=== PATIENT | male | born 1985 | race Caucasian/White ===

== ENCOUNTER 2024-06-27 23:24 | Inpatient (IN) | payer MEDICAID, SELFPAY ==
[2024-06-27 23:29] VITALS: PULSE 115; RESP 20; TEMP 36.3; O2SAT 95
[2024-06-27 23:31] VITALS: BP 160/103
[2024-06-27 23:32] VITALS: BP 160/103; PULSE 121; O2SAT 94
[2024-06-27 23:33] VITALS: PULSE 115; O2SAT 95
[2024-06-27 23:40] VITALS: PULSE 109; O2SAT 93
--- NOTE | 2024-06-27 23:42 | ED.GENADUL_ITS ---
Discharge Plan Disposition Patient Disposition: Admit to [facility] Condition: Improving Discharge Details Chief Complaint: Male Reproductive Problem Clinical Impression: Sepsis, Cellulitis of shaft of penis Primary Care Provider: Unknown,Unknown ED Provider: Deion Carlisle Home Meds and New Rx's Prescriptions: No Action buprenorphine-naloxone 8-2 mg film 1 film sublingual DAILY ibuprofen [Addaprin] 200 mg tablet 600 mg PO TID duloxetine [Cymbalta] 30 mg capsule,delayed release(DR/EC) 30 mg PO DAILY acetaminophen 325 mg capsule 650 mg PO BID PRN calcium polycarbophil [Fiber (calcium polycarbophil)] 625 mg tablet 1,250 mg PO BID docusate sodium 100 mg capsule 100 mg PO DAILY sennosides [Black-Draught Lax-Senna] 8.6 mg tablet 8.6 mg PO DAILY hydroxyzine HCl 50 mg tablet 50 mg PO ONCE testosterone enanthate 100 mg/0.5 mL auto-injector 75 mg subcut QWEEK HPI General Date/Time Provider Initiated Documentation: 06/27/24 23:37 . HPI Narrative: This is a 39-year-old male who is circumcised who denies any significant past medical history who is currently residing in the local intermediate, presents today for swelling and redness in his groin and penis area. Patient noticed that this morning there was some redness and swelling noted on the left side of his penis near his groin. Throughout the day it is significantly increased. The swelling has encompassed the entire left side of his penis and the redness has traveled proximally up his left groin. He admits to mild achiness mild pain in the area. He admits to mild difficulty peeing. He denies any earlier dysuria. He denies any history of zits or lesions that he squeezed or disrupted. He denies any other complaints at this time. Fpc noted that he had a temperature of 103 Fahrenheit at around 9 PM. At which time he was also given Tylenol and Motrin. He admits to mild chills. He denies any vomiting or diarrhea. No other complaints at this time. No known history of diabetes. Related Data Home Medications ?Medication ?Instructions ?Recorded ?Confirmed acetaminophen 325 mg capsule 650 mg PO BID PRN 06/28/24 06/28/24 buprenorphine 8 mg-naloxone 2 mg 1 film sublingual DAILY 06/28/24 06/28/24 sublingual film calcium polycarbophil 625 mg 1,250 mg PO BID 06/28/24 06/28/24 tablet (Fiber (calcium polycarbophil)) docusate sodium 100 mg capsule 100 mg PO DAILY 06/28/24 06/28/24 duloxetine 30 mg capsule,delayed 30 mg PO DAILY 06/28/24 06/28/24 release (Cymbalta) hydroxyzine HCl 50 mg tablet 50 mg PO ONCE 06/28/24 06/28/24 ibuprofen 200 mg tablet (Addaprin) 600 mg PO TID 06/28/24 06/28/24 sennosides 8.6 mg tablet 8.6 mg PO DAILY 06/28/24 06/28/24 (Black-Draught Lax-Senna) testosterone enanthate 100 mg/0.5 75 mg subcut QWEEK 06/28/24 06/28/24 mL subcutaneous auto-injector Allergies Allergy/AdvReac Type Severity Reaction Status Date / Time No Known Allergies Allergy Unverified 06/28/24 01:28 General Stated Complaint: Male Reproductive Problem NILDA: 3 Exam Narrative Exam Narrative: 1.Const: Well-nourished, Well-developed, appearing stated age 2.Eyes: PERRL, no conjunctival injection, and symmetrical lids. 3.ENT: Atraumatic external nose and ears. Moist MM. Neck: Symmetric, trachea midline, No thyromegaly. 4.CVS: +S1/S2, Peripheral pulses 2+ and equal in all extremities. Brisk capillary refill in all extremities. 5.RESP: Unlabored respiratory effort. Clear to auscultation bilaterally. No wheezes rales or rhonchi 6.GI: Soft, Nontender/Nondistended, No hepatosplenomegaly. No guarding or rebound. Genital exam was performed with the nursing staff at bedside. Patient has notable redness and swelling over the left lateral aspect of his entire penile shaft, including at the base, with subsequent mild's swelling and spreading redness proximally up the left groin. The area has been outlined by marker. He does not have circumferential edema throughout the entire penile shaft, there is a component of near circumferential component at the mid to distal third of the penile shaft. The penile head itself is not overly swollen, no evidence of ove rt balanitis. The patient is circumcised and there is no evidence of phimosis and no technical evidence of paraphimosis. The distal tip of the penis is not firm or indurated. No redness or vascular changes there. 7.MSK: Normocephalic/Atraumatic, Extremities w/o deformity or ttp No cyanosis or clubbing, Normal movement of all extremities 8.Skin: Warm, Dry. No rashes or lesions. 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 Sensation grossly intact, no focal neurologic deficits. 10.Psych: (AAO) x3. Appropriate mood and affect Course Vital Signs Vital signs: Vital Signs Temperature 36.3 C L 06/27/24 23:29 Pulse 115 H 06/27/24 23:29 Respiratory Rate 20 06/27/24 23:29 Pulse Oximetry 95 06/27/24 23:29 Temperature 36.3 C L 06/27/24 23:29 Temperature Source Skin 06/27/24 23:29 Pulse 115 H 06/27/24 23:29 Respiratory Rate 20 06/27/24 23:29 Blood Pressure 160/103 H 06/27/24 23:31 Blood Pressure Mean 122 06/27/24 23:31 Blood Pressure Position Sitting 06/27/24 23:29 Pulse Oximetry 95 06/27/24 23:29 Oxygen Delivery Method Room Air 06/27/24 23:29 Oxygen Flow Rate 0 06/27/24 23:29 Lab/Test Results Lab/Test Results: 06/27/24 23:39 Blood Blood Culture - Pending 06/27/24 23:39 Blood Blood Culture - Pending Medical Decision Making This is a 39-year-old male who is circumcised who denies any significant past medical history who is currently residing in the local intermediate, presents today for swelling and redness in his groin and penis area. Patient noticed that this morning there was some redness and swelling noted on the left side of his penis near his groin. Throughout the day it is significantly increased. The swelling has encompassed the entire left side of his penis and the redness has traveled proximally up his left groin. He admits to mild achiness mild pain in the area. He admits to mild difficulty peeing. He denies any earlier dysuria. He denies any history of zits or lesions that he squeezed or disrupted. He denies any other complaints at this time. Fpc noted that he had a temperature of 103 Fahrenheit at around 9 PM. At which time he was also given Tylenol and Motrin. He admits to mild chills. He denies any vomiting or diarrhea. No other complaints at this time. No known history of diabetes. Genital exam was performed with the nursing staff at bedside. Patient has notable redness and swelling over the left lateral aspect of his entire penile shaft, including at the base, with subsequent mild's swelling and spreading redness proximally up the left groin. The area has been outlined by marker. He does not have circumferential edema throughout the entire penile shaft, there is a component of near circumferential component at the mid to distal third of the penile shaft. The penile head itself is not overly swollen, no evidence of overt balanitis. The patient is circumcised and there is no evidence of phimosis and no technical evidence of paraphimosis. The distal tip of the penis is not firm or indurated. No redness or vascular changes there. No crepitus is noted on exam, no subcutaneous crepitus throughout. Testicles are not edematous. Differential includes cellulitis of the left penile shaft and groin, no active evidence to suggest Ines's gangrene however this is on the differential. Patient is likely septic with an earlier temperature, tachycardia, source of infection. Out of concern for potential early infectious etiology we will start broad-spectrum antibiotics with vancomycin, Zosyn, and out of the low likelihood concern for potential foreign years gangrene,/necrotizing fasciitis we will start clindamycin for toxin coverage. We will give a 20 cc/kg fluid bolus, place a Mcleod catheter as the patient has admitted very mild difficulty with urination. Will get CT imaging to rule out gas presence, will monitor closely and reassess. 1:52 AM Laboratory workup has returned, patient does have a white count of 14.9, with a left shift however he also appears slightly hemoconcentrated with a hemoglobin of 17.9. Lactate is normal, ESR is normal, CRP is elevated at 5.72. Bilirubin is slightly high at 2.3 but he has no abdominal pain to suggest cholecystitis or choledocholithiasis. 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 Urinalysis is negative for evidence of infection. CT scan shows no evidence of air or crepitus or abscess to suggest Ines's gangrene or necrotizing fasciitis. CPK is negative suggesting no significant muscle breakdown. I have sent an order for rapid HIV, and we will perform urine testing for gonorrhea and chlamydia. Patient is currently in intermediate. Unclear as to his regular sexual behaviors. Patient's hea rt rate has gone from the 120s down to 88. Blood pressure remained stable. Symptoms have improved. Diagnosis cellulitis of the penile shaft with associated sepsis which is now significantly improving post fluid resuscitation and antibiotics. With no evidence of an acute surgical component, and no evidence of phimosis or paraphimosis, and with the patient demonstrating good vascularity in the tip of the penis, as well as good urinary flow with the in- place Mcleod catheter, I do not see an indication for transfer or emergent urologic intervention at this time. Discussed the case with the hospitalist Dr. Springer, he agrees with the assessment and plan. I have extensively reviewed the treatment plan with the patient. I have addressed all patient concerns at this time. I have also discussed the plan with the admitting physician and they agree with the current assessment and plan and have agreed to assume responsibility for the patient. All parties demonstrate verbal understanding and agreement with our assessment and plan at this time. The documentation in this chart was dictated using NCR dictation software. Please excuse any dictation errors. FINDINGS: Liver: Normal. No mass. Gallbladder and biliary ducts: Normal. No calcified stones. No ductal dilation. Pancreas: Unremarkable. Spleen: Normal. Adrenal glands: Normal. No mass. Kidneys and ureters: Normal. No hydronephrosis. Stomach and bowel: Unremarkable. No bowel wall thickening or intestinal obstruction. Appendix: Normal appendix. Intraperitoneal space: Unremarkable. No pneumoperitoneum. No abscess. Vasculature: Unremarkable. Lymph nodes: Unremarkable. Urinary bladder: Unremarkable as visualized. Reproductive: There is left suprapubic subcutaneous inflammation which is contiguous with superficial penile edema. No soft tissue gas or abscess. Bones/joints: Unremarkable. No acute fracture. Soft tissues: See Reproductive finding. IMPRESSION: There is left suprapubic subcutaneous inflammation which is contiguous with superficial penile edema. No soft tissue gas or abscess. Thank you for allowing us to participate in the care of your patient. Dictated and Authenticated by: Ronal Galvez MD 06/28/2024 1:12 AM Eastern Time ([place] & [place]) Quality:SDOH Health Related Social Needs: No Data to Display Critical Care Time Critical Care Time Critical Care Time: Yes Total Critical Care Time: 45 Attestation: Upon my evaluation, this patient had a high probability of imminent or life- threatening deterioration, which required my direct attention, intervention, and personal management. I have personally provided 45 minutes of critical care time exclusive of time spent on separately billable procedures. Time includes review of laboratory data, radiology results, discussion with consultants, and monitoring for potential decompensation. Interventions were performed as documented. PFSH All Active Problems (Updated 06/28/24 @ 01:57 by Deion Carlisle DO) Cellulitis of shaft of penis (Acute) Sepsis (Acute) Social History Smoking/Tobacco Use Status: Former Tobacco Use Smoking risk assessment performed?: Yes Alcohol Intake: former Housing: other
[2024-06-27 23:50] VITALS: PULSE 102; O2SAT 94
[2024-06-27 23:50] LABS: Lactate 0.9 mmol/L (<or=2.0)
[2024-06-27 23:51] LABS: Abs Immature Grans 0.03 10^3/uL (0.0-0.06); Absolute Eosinophil Count 0.16 10^3/uL (0.0-0.7); Absolute Monocyte Count 1.18 10^3/uL (0.1-0.8); Absolute Neutrophil Count 11.45 10^3/uL (1.2-6.7); Basophils % 0.5 %; Eosinophils % 1.1 %; HCT 52.6 % (40.0-50.0); HGB 17.9 g/dL (13.5-17.5); Immature Grans % 0.2 %; Lymphocytes % 13.9 %; MCH 31.5 pg (27.0-33.0); MCV 92 fL (80-95); Monocytes % 7.9 %; Neutrophils % 76.4 %; Platelet Count 221 10^3/uL (130-400); RBC 5.69 10^6/uL (4.36-5.78); RDW-SD 41.1 fL; WBC 14.99 10^3/uL (4.4-10.8)
[2024-06-27 23:53] LABS: Absolute Basophil Count 0.07 10^3/uL (0.0-0.2); Absolute Lymphocyte Count 2.08 10^3/uL (1.2-3.4); ESR < 1 mm/hr (0-15)
[2024-06-27] MEDS: Normal Saline 1,000 ML 1000 ML IV (23:59)
[2024-06-27] MEDS: PIPERACILLIN/TAZO 4.5 GM in Normal Saline 100 ML IVPB (23:59)
[2024-06-28] VITALS (25 sets, daily range): BP systolic 115–147; BP diastolic 73–97; PULSE 84–108; RESP 10–20; TEMP 35.7–37; O2SAT 91–97
[2024-06-28 00:08] LABS: Magnesium 1.5 mg/dL (1.8-2.4)
[2024-06-28 00:13] LABS: C-Reactive Protein 5.72 mg/dL (<or=0.5); Creatine Kinase 190 U/L (39-308)
[2024-06-28 00:14] LABS: Albumin 4.9 g/dL (3.4-5.0); BUN 19 mg/dL (7-18); CREATININE 1.2 mg/dL (0.70-1.30); Calcium 9.8 mg/dL (8.5-10.1); Estimated GFR 79.38 (mL/min/1.73m2); Glucose 104 mg/dL (74-106); Total Protein 8.2 g/dL (6.4-8.2)
[2024-06-28 00:15] LABS: ALT 135 U/L (16-63); AST 53 U/L (15-37); Alkaline Phosphatase 92 U/L (46-116); Anion Gap 7.2 mmol/L (3-11); Bilirubin, Total 2.3 mg/dL (0.2-1.0); CO2 29.8 mmol/L (21.0-32.0); Chloride 100 mmol/L (98-107); Sodium 137 mmol/L (136-145)
[2024-06-28] MEDS: CLINDAMYCIN 600 MG/50 ML BAG 100 MG IVPB (00:17)
[2024-06-28] MEDS: Lidocaine 2% Jelly 6 ML SYR (00:18)
[2024-06-28] MEDS: Lactated Ringers 1,000 ML 1000 ML IV (00:20)
[2024-06-28 00:24] LABS: Procalcitonin < 0.10 ng/mL
[2024-06-28 00:37] LABS: Bilirubin Negative (Negative); Blood Negative (Negative); Clarity Clear (Clear); Glucose Negative (Negative); Ketones Negative (Negative); Leukocyte Esterase Negative (Negative); Nitrite Negative (Negative); Specific Gravity 1.015 (1.005-1.025)
--- NOTE | 2024-06-28 00:51 | DI.CT_ITS ---
Exam(s) CT ABDOMEN PELVIS W EXAM: CT ABDOMEN PELVIS W CLINICAL HISTORY: Swelling and cellulitis on penis/L groin, r/o FG. TECHNIQUE: Imaging Protocol: Axial computed tomography images with coronal and sagittal reformatted images were created and reviewed CONTRAST MATERIAL: Intravenous: Omnipaque 350 Contrast volume:100 ml Oral: no COMPARISON: No exams were available for comparison FINDINGS: ABDOMEN and PELVIS: Lung Bases: No acute findings. Liver: Hepatic steatosis. No suspicious mass. Gallbladder and biliary tract: No radiodense calculus. No wall thickening or pericholecystic fluid. No biliary dilation. Pancreas: Normal density. No abnormal calcifications or inflammatory process. No evidence of mass. Spleen: Normal. Kidneys: Normal size, contour and axis. No radiodense stones. No obstructive uropathy. No suspicious masses seen. Adrenal glands: No masses seen. Vasculature: Abdominal aorta non-dilated. Soft tissues: Soft tissue edema noted from the level of the pubic symphysis extending inferiorly to i nvolve the penis and upper scrotum. No visible focal drainable collection. No air or foreign body. Bladder: Decompressed by Mcleod catheter. Bowel: No obstruction. No bowel wall thickening. Appendix normal. Normal quantity of stool. Peritoneal cavity: No ascites. No focal collection. No mesenteric inflammatory response. No free air . Bones: Unremarkable for age. Reproductive organs: Soft tissue edema of the of the penis and upper scrotum. The testicles appea r somewhat atrophic. Lymph nodes: No pathologically enlarged lymph nodes. IMPRESSION:: Marked soft tissue edema involving the penis and upper scrotum. No evidence of drainab le abscess or abnormal gas collection. RADIATION DOSE DELIVERED: 830.07mGy.cm Total DLP DATA REPOSITORY: All CT scans at this facility are submitted to the National Radiology Data Registry (NRDR) Dose Index Registry (DIR) with the [employer] ([employer]). RADIATION OPTIMIZATION: All CT scans at this facility use at least one of these dose optimization te chniques: automated exposure control; mA and/or kV adjustment per patient size (includes targeted exa ms where dose is matched to clinical indication); or iterative reconstruction.
[2024-06-28] MEDS: Omnipaque 350 MG/ML 100 ML BTL IJ (01:09)
[2024-06-28] MEDS: Normal Saline - Diluent 50 ML VIAL IJ (01:10)
--- NOTE | 2024-06-28 01:13 | DI.VRAD_ITS ---
PROCEDURE INFORMATION: Exam: CT Abdomen And Pelvis With Contrast Exam date and time: 06/28/2024 12:05 AM Age: 39 years old Clinical indication: Other: Swelling and cellulitis on penis/l groin, R/O fg TECHNIQUE: Imaging protocol: Computed tomography of the abdomen and pelvis with contrast. Radiation optimization: All CT scans at this facility use at least one of these dose optimization techniques: automated exposure control; mA and/or kV adjustment per patient size (includes targeted exams where dose is matched to clinical indication); or iterative reconstruction. Contrast material: [id number]; Contrast volume: 100 ml; Contrast route: INTRAVENOUS (IV); COMPARISON: No relevant prior studies available. FINDINGS: Liver: Normal. No mass. Gallbladder and biliary ducts: Normal. No calcified stones. No ductal dilation. Pancreas: Unremarkable. Spleen: Normal. Adrenal glands: Normal. No mass. Kidneys and ureters: Normal. No hydronephrosis. Stomach and bowel: Unremarkable. No bowel wall thickening or intestinal obstruction. Appendix: Normal appendix. Intraperitoneal space: Unremarkable. No pneumoperitoneum. No abscess. Vasculature: Unremarkable. Lymph nodes: Unremarkable. Urinary bladder: Unremarkable as visualized. Reproductive: There is left suprapubic subcutaneous inflammation which is contiguous with superficial penile edema. No soft tissue gas or abscess. Bones/joints: Unremarkable. No acute fracture. Soft tissues: See Reproductive finding. IMPRESSION: There is left suprapubic subcutaneous inflammation which is contiguous with superficial penile edema. No soft tissue gas or abscess. Dictated and Authenticated by: Ronal Galvez MD. Orderin Orestes Albarran MD
[2024-06-28] MEDS: ACETAMINOPHEN 1,000 MG/100 ML BTL 400 MG IVPB (01:26)
[2024-06-28] MEDS: VANCOMYCIN 2,000 MG in Normal Saline 500 ML 333.3333 MG IVPB (01:27)
--- NOTE | 2024-06-28 02:00 | HPE_ITS ---
Date of service: 06/28/24 Time of Service: 02:00 Assessment and Plan Assessment and plan (1) Sepsis: Status: Acute Assessment and plan: -sepsis criteria included tachycardia with elevated WBCs and reported fever prior to presentation -afebrile and vitals now stable -source clearly penile cellultis, CT with no findings concerning for abscess and no SC gas -had vanc/zosyn/clinda in ED, continue vanc/zosyn on admit -IVF bolus in ED, continue maintenance overnight -ED ordered HIV and STD testing -urology consult if available (2) Cellulitis of shaft of penis: Status: Acute Assessment and plan: -as above (3) Opiate dependence: Status: Acute Assessment and plan: -continue usual dose of suboxone when verified with pharmacy (4) Hypomagnesemia: Status: Acute Assessment and plan: -replace IV and repeat in AM (5) Liver function abnormality: Status: Acute Assessment and plan: -bili/transaminases off, repeat in AM History of Present Illness Narrative: 39 yo male currently incarcerated, minimal PMH including no diabetes, presented to the ED with sudden onset of penile redness, pain and swelling. He noticed this morning there was some redness and swelling noted on the left side of his penis near his groin. Throughout the day it is significantly increased. The swelling has encompassed the entire left side of his penis and the redness has traveled proximally up his left groin. The area is painful. He denies urethral discharge and is not concerned he may have an STD. No preceding skin lesions. He has a headache and asked for some motrin. Residential noted that he had a temperature of 103 Fahrenheit at around 9 PM and was given Tylenol and Motrin. Feels about the same right now, maybe a little better. Takes suboxone due to hx of opiate dependence. All other ROS is negative. PFSH All Active Problems (Updated 06/28/24 @ 02:15 by Milton Springer MD) Liver function abnormality (Acute) Hypomagnesemia (Acute) Opiate dependence (Acute) Cellulitis of shaft of penis (Acute) Sepsis (Acute) Social History Smoking/Tobacco Use Status: Former Tobacco Use Smoking risk assessment performed?: Yes Alcohol Intake: former Housing: other Meds Allergies and Home Medications Allergies Allergy/AdvReac Type Severity Reaction Status Date / Time No Known Allergies Allergy Unverified 06/28/24 01:28 Home Medications ?Medication ?Instructions ?Recorded ?Confirmed ?Type acetaminophen 325 mg capsule 650 mg PO BID PRN 06/28/24 06/28/24 History buprenorphine 8 mg-naloxone 2 mg 1 film sublingual DAILY 06/28/24 06/28/24 History sublingual film calcium polycarbophil 625 mg 1,250 mg PO BID 06/28/24 06/28/24 History tablet (Fiber (calcium polycarbophil)) docusate sodium 100 mg capsule 100 mg PO DAILY 06/28/24 06/28/24 History duloxetine 30 mg capsule,delayed 30 mg PO DAILY 06/28/24 06/28/24 History release (Cymbalta) hydroxyzine HCl 50 mg tablet 50 mg PO ONCE 06/28/24 06/28/24 History ibuprofen 200 mg tablet (Addaprin) 600 mg PO TID 06/28/24 06/28/24 History sennosides 8.6 mg tablet 8.6 mg PO DAILY 06/28/24 06/28/24 History (Black-Draught Lax-Senna) testosterone enanthate 100 mg/0.5 75 mg subcut QWEEK 06/28/24 06/28/24 History mL subcutaneous auto-injector Exam Const General: no acute distress Resp Auscultation: clear to auscultation bilaterally Cardio Rate: regular rate Rhythm: regular rhythm Penis: erythematous Other: large area of erythema/edema on side of penis extending into groin area Psych Mental Status: mental status grossly normal Results Labs 06/27/24 23:38 06/27/24 23:38 Labs: Laboratory Results - last 24 hr 06/27/24 06/28/24 23:38 00:31 WBC 14.99 H RBC 5.69 Hgb 17.9 H Hct 52.6 H MCV 92 MCH 31.5 MCHC 34.0 RDW 12.0 Plt Count 221 MPV 10.0 Immature Gran % 0.2 Neutrophils % 76.4 Lymphocytes % 13.9 Monocytes % 7.9 Eosinophils % 1.1 Basophils % 0.5 Nucleated RBC % 0.0 Absolute Neutrophils 11.45 H Absolute Lymphocytes 2.08 Absolute Monocytes 1.18 H Absolute Eosinophils 0.16 Absolute Basophils 0.07 ESR < 1 VBG Lactate 0.9 Sodium 137 Potassium 4.0 Chloride 100 Carbon Dioxide 29.8 Anion Gap 7.2 BUN 19 H Creatinine 1.2 Est GFR (CKD-EPI 2020) 79.38 Glucose 104 Calcium 9.8 Magnesium 1.5 L Total Bilirubin 2.3 H AST 53 H ALT 135 H Alkaline Phosphatase 92 Creatine Kinase 190 C-Reactive Protein 5.72 H Total Protein 8.2 Albumin 4.9 Procalcitonin < 0.10 Urine Color Yellow Urine Clarity Clear Urine pH 7.0 Ur Specific [place] 1.015 Urine Protein Trace Urine Ketones Negative Urine Blood Negative Urine Nitrite Negative Urine Bilirubin Negative Urine Urobilinogen 1.0 H Ur Leukocyte Esterase Negative Urine Glucose Negative Last Vital Signs Temp 36.3 C L 06/27/24 23:29 Pulse 115 H 06/27/24 23:29 Resp 20 06/27/24 23:29 BP 160/103 H 06/27/24 23:31 Pulse Ox 95 06/27/24 23:29 Time Spent Time spent with Patient: 40-54 minutes Time was spent: preparing to see the patient(eg.review tests), obtaining and/or reviewing separately [place] license [facility], ordering medications,tests, procedures, referring, communicating with other health health care technician, indepentently interpreting results and counseling the patient
--- NOTE | 2024-06-28 03:13 | W.PC.ACHO ---
Registration Status: Primary Language: Preferred Language: ED Information & Data Chief Complaint Male Reproductive Problem 06/28/24 00:14 Triage Note Brought in by DOC, swollen 06/27/24 23:29 testicles/penis. feeling unwell and not passing urine Most Recent Vital Signs Temperature 36.3 C L 06/27/24 23:29 Temperature Source Skin 06/27/24 23:29 Pulse 84 06/28/24 02:46 Pulse 86 06/28/24 02:46 Respiratory Rate 19 06/28/24 01:20 Blood Pressure 122/82 06/28/24 02:46 Blood Pressure Mean 90 06/28/24 02:46 Blood Pressure Position Sitting 06/27/24 23:29 Pulse Oximetry 93 06/28/24 02:40 Oxygen Delivery Method Room Air 06/27/24 23:29 Oxygen Flow Rate 0 06/27/24 23:29 Allergies No Known Allergies Allergy (Unverified 06/28/24 01:28) Precautions Isolation Standard precaution 06/27/24 23:32 Active Medications Generic Name Dose Route Start Last Admin Trade Name Stephen PRN Reason Stop Dose Admin Iohexol 100 ml 06/28/24 01:15 06/28/24 01:09 Omnipaque 350 Mg/Ml 100 Ml Btl IJ 07/28/24 23:59 100 ml DIRECTED REBECCA Administration Sodium Chloride 50 ml 06/28/24 01:15 06/28/24 01:10 Normal Saline - Diluent 50 Ml Vial IJ 50 ml .FOR DI USE REBECCA Administration IV IV Catheter Type [Left Saline Lock Antecubital] IV Catheter Type [Right Saline Lock Antecubital] IV Catheter Gauge [Left 20 Antecubital] IV Catheter Gauge [Right 18 Antecubital] Diet Orders Category Date Time Status Regular/Normal [DIET] Nutrition 06/28/24 Breakfast Active Diagnostics 06/28/24 06/28/24 06/27/24 Range/Units 05:35 00:31 23:38 WBC Pending 14.99 H (4.4-10.8) 10^3/uL RBC Pending 5.69 (4.36-5.78) 10^6/uL Hgb Pending 17.9 H (13.5-17.5) g/dL Hct Pending 52.6 H (40.0-50.0) % MCV Pending 92 (80-95) fL MCH Pending 31.5 (27.0-33.0) pg MCHC Pending 34.0 (32.0-36.0) % RDW Pending 12.0 (11.8-14.1) % Plt Count Pending 221 (130-400) 10^3/uL MPV Pending 10.0 (8.0-11.0) fL Immature Gran % 0.2 % Neutrophils % 76.4 % Lymphocytes % 13.9 % Monocytes % 7.9 % Eosinophils % 1.1 % Basophils % 0.5 % Nucleated RBC % 0.0 (0.0-0.3) % Absolute Neutrophils 11.45 H (1.2-6.7) 10^3/uL Absolute Lymphocytes 2.08 (1.2-3.4) 10^3/uL Absolute Monocytes 1.18 H (0.1-0.8) 10^3/uL Absolute Eosinophils 0.16 (0.0-0.7) 10^3/uL Absolute Basophils 0.07 (0.0-0.2) 10^3/uL ESR < 1 (0-15) mm/hr VBG Lactate 0.9 (<or=2.0) mmol/L Sodium Pending 137 (136-145) mmol/L Potassium Pending 4.0 (3.5-5.1) mmol/L Chloride Pending 100 (98-107) mmol/L Carbon Dioxide Pending 29.8 (21.0-32.0) mmol/L Anion Gap Pending 7.2 (3-11) mmol/L BUN Pending 19 H (7-18) mg/dL Creatinine Pending 1.2 (0.70-1.30) mg/dL Est GFR (CKD-EPI 2020) Pending 79.38 (mL/min/1.73m2) Glucose Pending 104 (74-106) mg/dL Calcium Pending 9.8 (8.5-10.1) mg/dL Magnesium Pending 1.5 L (1.8-2.4) mg/dL Total Bilirubin Pending 2.3 H (0.2-1.0) mg/dL AST Pending 53 H (15-37) U/L ALT Pending 135 H (16-63) U/L Alkaline Phosphatase Pending 92 (46-116) U/L Creatine Kinase 190 (39-308) U/L C-Reactive Protein 5.72 H (<or=0.5) mg/dL Total Protein Pending 8.2 (6.4-8.2) g/dL Albumin Pending 4.9 (3.4-5.0) g/dL Procalcitonin < 0.10 ng/mL Urine Color Yellow (Yellow) Urine Clarity Clear (Clear) Urine pH 7.0 (5-8) Ur Specific [place] 1.015 (1.005-1.025) Urine Protein Trace (Neg-Trace) mg/dL Urine Ketones Negative (Negative) mg/dL Urine Blood Negative (Negative) Urine Nitrite Negative (Negative) Urine Bilirubin Negative (Negative) Urine Urobilinogen 1.0 H (Up to 0.2) mg/dL Ur Leukocyte Esterase Negative (Negative) Urine Glucose Negative (Negative) mg/dL 06/27/24 23:38 Blood Culture - Pending Blood 06/27/24 23:40 Blood Culture - Pending Blood Intake and Output - 24 Hour Total 06/27/24 23:24 thru 06/28/24 02:56 Intake Total 1250 Output Total 600 Balance 650 Weight 104.3 kg Intake: IV 1250 Output: Urine 600 Other: Urine Color Pale Urine Appearance Clear Comment penis very reddened and swollen at the time of insertion. Insertion was difficult, pt tolerated well Falls Risk Assessment History of Falls No History 06/28/24 00:19 Contributing Factors No Factors 06/28/24 00:19 Ambulatory Aids Independent 06/28/24 00:19 Tubes/Lines None 06/28/24 00:19 Gait Evaluation No gait disturbance 06/28/24 00:19 Cognition No cognitive impairment 06/28/24 00:19 Fall Total Score 0 06/28/24 00:19 Level of Risk Standard/Low Risk 06/28/24 00:19 Problems Liver function abnormality (Acute) Hypomagnesemia (Acute) Opiate dependence (Acute) Cellulitis of shaft of penis (Acute) Sepsis (Acute) v v v v v v v v v Sending and/or Receiving Nurses: Please use comment section below to note any information pertinent to the patient hand-off not included above. Information / Comments: Report received from: Patient arrived at 0300 on med surg floor. Report given to floor nurse from Uli in ED.
[2024-06-28] MEDS: MAGNESIUM SULFATE 1 GM/100 ML BAG IV_INF (04:38)
[2024-06-28] MEDS: Ibuprofen 600 MG TAB PO ×3 (05:07→19:46)
[2024-06-28] MEDS: PIPERACILLIN/TAZO 4.5 GM in Normal Saline 100 ML IVPB ×3 (06:22→17:44)
[2024-06-28] MEDS: Ondansetron O.D.T. 4 MG TABEF PO ×2 (06:31→19:47)
[2024-06-28 07:10] LABS: HCT 46.3 % (40.0-50.0); HGB 15.5 g/dL (13.5-17.5); MCH 31.6 pg (27.0-33.0); MCHC 33.5 % (32.0-36.0); MCV 94 fL (80-95); MPV 10.2 fL (8.0-11.0); Platelet Count 162 10^3/uL (130-400); RBC 4.91 10^6/uL (4.36-5.78); WBC 14.93 10^3/uL (4.4-10.8)
[2024-06-28 07:31] LABS: ALT 90 U/L (16-63); AST 30 U/L (15-37); Albumin 3.5 g/dL (3.4-5.0); Alkaline Phosphatase 70 U/L (46-116); Anion Gap 6.6 mmol/L (3-11); BUN 15 mg/dL (7-18); Bilirubin, Total 2.7 mg/dL (0.2-1.0); CO2 29.4 mmol/L (21.0-32.0); CREATININE 1.2 mg/dL (0.70-1.30); Calcium 8.5 mg/dL (8.5-10.1); Chloride 104 mmol/L (98-107); Estimated GFR 79.38 (mL/min/1.73m2); Glucose 106 mg/dL (74-106); Magnesium 1.8 mg/dL (1.8-2.4); Potassium 3.9 mmol/L (3.5-5.1); Sodium 140 mmol/L (136-145); Total Protein 6.1 g/dL (6.4-8.2)
[2024-06-28] MEDS: Normal Saline Flush 10 ML SYR IVP ×3 (08:26→19:46)
[2024-06-28] MEDS: DULoxetine 30 MG CAP PO (08:27)
[2024-06-28] MEDS: Enoxaparin 40 MG/0.4 ML SYR SC (08:28)
--- NOTE | 2024-06-28 09:00 | PDOC.CMIN ---
Date of service: 06/28/24 Time of Service: 09:00 Care Management Initial Assmt Initial Assessment Reason for Hospitalization: Cellulitis Functional Status/Living Situation Patient Presentation: Radha was lying in bed and had a correctional treatment specialist in the room with him, when CM arrived. Radha presented to the ED for swelling and redness in his groin and penis area. He is currently incarcerated at the [facility]. Radha states that he feels like he has a good support system within the long-term, but he does not have family that visits him. Per Radha, he is not feeling great, and is tired. Radha is thankful for the care that he is receiving. CM will continue to follow. Town of Residence: [facility] Resides with: Other ([facility]) Significant Other/Family: Local (Son family but he asks that they do not visit him while he is incarcerated.) Natural Supports: Friends, some family Employment Status: Other (Incarcerated) Instrumental Activities of Daily Living (ADLs): Independent Medications Medication Management: No Issues/Barriers identified Advance Directives Advance Directives: Do you have an Advance Directive: AD On File at [facility]: N 06/28/24 01:57 Date Asked AD Date Reviewed COLST On File at [facility] COLST Date Scanned Code Status Resuscitation Status Full Code Portal Pt does not currently have a portal and education provided: Yes Insurance Coverage/Financial Issues Insurance: Medicaid of [place] Care Team Visit Care Team Role Provider Type Crystal Peters APRN MD [facility] STAFF PHYSICIAN Unknown Unknown Primary Care Provider STAFF PHYSICIAN Dillon Vazquez MD Other Providers [facility] STAFF PHYSICIAN Deion Carlisle DO Emergency Provider [facility] STAFF PHYSICIAN Milton Springer MD Admit Provider [facility] STAFF PHYSICIAN Attending Provider Discharge Potential Discharge Needs: PCP F/U Appt Anticipated Barriers to Discharge: None Identified Patient/Family Education Needs: Review discharge instructions, discuss Ask Me Three Transportation: Facility Transport (DOC) Plan: Anticipate Radha will be discharged back to [facility], once medically ready. He will follow up with his facility providers and discharge plan of care. He will be transported via facility vehicle by DOC. Social Determinants of Health Screening Social Determinants of health last assessed in clinic: 06/28/24 Will the Patient Participate in the Screening?: Yes Do you worry about having a steady place to live?: no Problems where you live: no known problems In the past 12 months, have you had to go without electric, gas, oil or water in your home?: no 1. Within the past 12 months, we worried whether our food would run out before we got money to buy more.: Never true 2. Within the past 12 months, the food we bought just didn't last and we didn't have money to get more.: Never true Has lack of transportation kept you from medical appointments or from doing things needed for daily living?: no Has anyone in your life made you feel unsafe or unsupported?: no How hard is it for you to pay for the very basics like food, housing, medical care, and heating? Would you say it is:: Not hard at all Do you want help finding or keeping work or a job?: I do not need or want help If for any reason you need help with day-to-day activities such as bathing, preparing meals, shopping, managing finances, etc., do you get the help you need?: I don?t need any help How often do you feel lonely or isolated from those around you?: Never Do you speak a language other than Micronesian at home?: No Does the patient want assistance with any of the above?: No PFSH All Active Problems (Updated 06/28/24 @ 02:15 by Milton Springer MD) Liver function abnormality (Acute) Hypomagnesemia (Acute) Opiate dependence (Acute) Cellulitis of shaft of penis (Acute) Sepsis (Acute) Social History Smoking/Tobacco Use Status: Former Tobacco Use Smoking risk assessment performed?: Yes Alcohol Intake: former Housing: other Readmission Within the Past 30 Days Yes or No: No
[2024-06-28] MEDS: Normal Saline 1,000 ML 75 ML IV (09:20)
[2024-06-28] MEDS: Buprenorphine/Naloxone 12 mg/3 mg FILM 1 EACH SL (09:20)
[2024-06-28] MEDS: Buprenorphine/Naloxone 8 mg/2 mg FILM 1 EACH SL (09:20)
[2024-06-28] MEDS: Acetaminophen 325 MG TAB 650 MG PO ×2 (12:09→19:47)
[2024-06-28] MEDS: hydrOXYzine HCL 50 MG TAB PO (12:14)
[2024-06-28 13:20] LABS: Vancomycin, Random 8.4 ug/mL
[2024-06-28] MEDS: VANCOMYCIN 1,250 MG in Normal Saline 250 ML 166.667 MG IV (14:32)
--- NOTE | 2024-06-28 15:29 | PHACLINREV_ITS ---
Pharmacy Admission Review Admission Clinical Review Admission Pharmacy Review: Liver function abnormality (Acute) Hypomagnesemia (Acute) Opiate dependence (Acute) Cellulitis of shaft of penis (Acute) Sepsis (Acute) No Known Allergies Allergy (Unverified 06/28/24 01:28) Resuscitation Status Full Code Height 6 ft 1 in Weight 104.3 kg Pharmacy Admission Review Renal Dosing Renal Dosing: BUN 15 mg/dL (7-18) 06/28/24 07:02 Creatinine 1.2 mg/dL (0.70-1.30) 06/28/24 07:02 Medications needing adjustments: Reviewed (crcl = 105, no adjustments needed) Anticoagulation Anticoagulation: Hgb 15.5 g/dL (13.5-17.5) D 06/28/24 07:02 Hct 46.3 % (40.0-50.0) 06/28/24 07:02 Plt Count 162 10^3/uL (130-400) 06/28/24 07:02 Creatinine 1.2 mg/dL (0.70-1.30) 06/28/24 07:02 DVT Prophylaxis: Reviewed Medications: Enoxaparin (40 mg daily) Therapeutic Anticoagulation: N/A Opiate Usage Evaluate Pain Scale/Pains Meds: Reviewed (tylenol prn for pain, not on opiates. takes suboxone 20mg/5mg daily) Relevant Labs Relevant Labs: ESR < 1 mm/hr (0-15) 06/27/24 23:38 Sodium 140 mmol/L (136-145) 06/28/24 07:02 Potassium 3.9 mmol/L (3.5-5.1) 06/28/24 07:02 Chloride 104 mmol/L (98-107) 06/28/24 07:02 Magnesium 1.8 mg/dL (1.8-2.4) 06/28/24 07:02 C-Reactive Protein 5.72 mg/dL (<or=0.5) H 06/27/24 23:38 Electrolytes, C-Reactive P, ESR: Reviewed DM Control DM Control: N/A (not diabetic) Cardiac Review BP, HR, EF%: Reviewed (initially hypertensive, BP now WNL. not on antihy pertensives) QTc Review QTc: N/A (no EKG in chart) IV to PO Switch IV Medications: Reviewed (IV antibiotics for now, plan is to change to PO when appropriate) Home Meds Home Med List reviewed: Reviewed (suboxone dose verified by pt's RN (spoke w/correctional facility)) Relevent Home Meds Not ordered & why?: testosterone weekly injector not ordered, not stocked here. would need to obtain from corrections if due while here othe rwise pt will resume upon discharge Current Meds Current Medication Order Review: Reviewed Pharmacy Antibiotic Review Relevant Labs: Relevant Labs 06/27/24 23:38 C-Reactive Protein 5.72 H Procalcitonin < 0.10 Pharmacy Antibiotic Activity: Reviewed, no change Comments: on zosyn 4.5 q6h + vancomycin 1250 mg Q12h (anticipated AUC = 508, trough = 17.5); indication: cellulitis
--- NOTE | 2024-06-28 15:29 | W.UROLOGYCON ---
Date of service: 06/28/24 Time of Service: 15:29 Assessment and Plan Assessment and plan (1) Cellulitis of shaft of penis: Status: Acute Assessment and plan: At this point, there is no surgical indication. If he develops an abscess, and incisional drainage and localized wound care would be considered along with his broad-spectrum antibiotics. If I had to venture a guess, I would expect that there may have been some break of the skin while shaving and an organism such as staph was allowed to enter the patient's system. Luckily, he is not immunocompromised so I expect he will respond well to antibiotics alone. History of Present Illness History of Present Illness Chief Complaint: Cellulitis Narrative: This is a 39-year-old gentleman who was admitted through the emergency department early this morning with fevers and signs of sepsis. He was found to have cellulitis involving the skin on the left side of the penile shaft. There was extension of his erythema toward the left groin and the remainder of the penile skin. He was admitted for IV antibiotics. I have been asked to see him while he is hospitalized. He tells me the onset of his illness was quite rapid. About 24 hours prior to noticing some discomfort and swelling on the left side of the penis, he felt fine. He does not recall any specific trauma to the area, but he does tell me that he shaves the perineal hair every other day. He has not found that the area in question has come to ahead. He does not recall any specific insect bite or break in the skin. He does not have any immunocompromisation. He has no diabetes. He has never been an IV drug abuser. He is not HIV positive. Prior to the onset, he had no dysuria or urethral discharge. His urinalysis at the time of admission was normal. Review of Systems Constitutional Comments: No vision change or dysphasia No diabetes or thyroid dysfunction No shortness of breath, cough or hemoptysis No chest pain or palpitations No nausea, vomiting No seizures, strokes or peripheral neuropathy No bleeding disorders or anemia No gout PFSH All Active Problems (Updated 06/28/24 @ 02:15 by Milton Springer MD) Liver function abnormality (Acute) Hypomagnesemia (Acute) Opiate dependence (Acute) Cellulitis of shaft of penis (Acute) Sepsis (Acute) Social History Smoking/Tobacco Use Status: Former Tobacco Use Smoking risk assessment performed?: Yes Alcohol Intake: former Housing: other Exam Narrative Exam Narrative: His vital signs are documented elsewhere in this chart His chest wall motion is normal. He is not short of breath at rest. His abdomen is soft with no peritoneal signs There is mild erythema extending up into the left groin. I do not feel any underlying hernia. He is circumcised. There is an indurated area along the left side of the penis with no fluctuance. There is erythema and edema extending around the remainder of the penile skin but not involving the glans. There is a urethral catheter in place that is draining clear urine He is awake and alert His blood cultures are pending Results Last Vital Signs Temp 35.7 C L 06/28/24 07:47 Pulse 107 H 06/28/24 07:47 Resp 16 06/28/24 07:47 BP 115/74 06/28/24 07:47 Pulse Ox 93 06/28/24 07:47 Labs 06/28/24 07:02 06/28/24 07:02 Labs: Laboratory Results - last 24 hr 06/27/24 06/28/24 06/28/24 23:38 00:31 07:02 WBC 14.99 H 14.93 H RBC 5.69 4.91 Hgb 17.9 H 15.5 D Hct 52.6 H 46.3 MCV 92 94 MCH 31.5 31.6 MCHC 34.0 33.5 RDW 12.0 12.0 Plt Count 221 162 MPV 10.0 10.2 Immature Gran % 0.2 Neutrophils % 76.4 Lymphocytes % 13.9 Monocytes % 7.9 Eosinophils % 1.1 Basophils % 0.5 Nucleated RBC % 0.0 Absolute Neutrophils 11.45 H Absolute Lymphocytes 2.08 Absolute Monocytes 1.18 H Absolute Eosinophils 0.16 Absolute Basophils 0.07 ESR < 1 VBG Lactate 0.9 Sodium 137 140 Potassium 4.0 3.9 Chloride 100 104 Carbon Dioxide 29.8 29.4 Anion Gap 7.2 6.6 BUN 19 H 15 Creatinine 1.2 1.2 Est GFR (CKD-EPI 2020) 79.38 79.38 Glucose 104 106 Calcium 9.8 8.5 Magnesium 1.5 L 1.8 Total Bilirubin 2.3 H 2.7 H AST 53 H 30 ALT 135 H 90 H Alkaline Phosphatase 92 70 Creatine Kinase 190 C-Reactive Protein 5.72 H Total Protein 8.2 6.1 L Albumin 4.9 3.5 Procalcitonin < 0.10 Urine Color Yellow Urine Clarity Clear Urine pH 7.0 Ur Specific [place] 1.015 Urine Protein Trace Urine Ketones Negative Urine Blood Negative Urine Nitrite Negative Urine Bilirubin Negative Urine Urobilinogen 1.0 H Ur Leukocyte Esterase Negative Urine Glucose Negative Random Vancomycin 06/28/24 06/28/24 08:05 12:00 WBC RBC Hgb Hct MCV MCH MCHC RDW Plt Count MPV Immature Gran % Neutrophils % Lymphocytes % Monocytes % Eosinophils % Basophils % Nucleated RBC % Absolute Neutrophils Absolute Lymphocytes Absolute Monocytes Absolute Eosinophils Absolute Basophils ESR VBG Lactate Sodium Potassium Chloride Carbon Dioxide Anion Gap BUN Creatinine Est GFR (CKD-EPI 2020) Glucose Calcium Magnesium Total Bilirubin AST ALT Alkaline Phosphatase Creatine Kinase C-Reactive Protein Total Protein Albumin Procalcitonin Urine Color Cancelled Urine Clarity Cancelled Urine pH Cancelled Ur Specific [place] Cancelled Urine Protein Cancelled Urine Ketones Cancelled Urine Blood Cancelled Urine Nitrite Cancelled Urine Bilirubin Cancelled Urine Urobilinogen Cancelled Ur Leukocyte Esterase Cancelled Urine Glucose Cancelled Random Vancomycin 8.4
[2024-06-28 19:04] LABS: Vancomycin, Random 20.2 ug/mL
[2024-06-29] MEDS: PIPERACILLIN/TAZO 4.5 GM in Normal Saline 100 ML IVPB ×2 (00:07→05:56)
[2024-06-29] MEDS: Ibuprofen 600 MG TAB PO ×3 (00:08→13:11)
[2024-06-29] MEDS: Normal Saline 1,000 ML 75 ML IV (00:08)
[2024-06-29] MEDS: Acetaminophen 325 MG TAB 650 MG PO ×3 (00:08→13:11)
[2024-06-29] MEDS: Normal Saline Flush 10 ML SYR IVP ×2 (00:09→09:03)
[2024-06-29] MEDS: VANCOMYCIN 1,250 MG in Normal Saline 250 ML 166.667 MG IV (01:56)
--- NOTE | 2024-06-29 02:13 | SCONE_ITS ---
Date of service: 06/29/24 Time of Service: 02:13 Assessment and Plan Assessment and plan (1) Cellulitis of shaft of penis: Status: Acute Assessment and plan: This all appears most consistent with cellulitis involving the penis. There are no signs of any necrotizing soft tissue infection. There are no drainable collections. Although the penis is edematous, none of the tissue is compromised. I agree with Dr. Vazquez with regards to continuation of broad- spectrum antibiotics. He should try to keep his pelvis elevated as best he can (which he is already doing. A small bump under the scrotum and base of the penis, or a sling to help keep it elevated will help reduce some of the edema. Cold packs can also be used for his comfort. History of Present Illness History of Present Illness Chief Complaint: Cellulitis Narrative: Mr. Edward is 39 years old. Came to the emergency department early yesterday morning with fevers and swollen red skin over his penis. He was diagnosed with cellulitis, and admitted to the hospital with intravenous antibiotics. He was seen by Dr. Vazquez, who agreed with the diagnosis of cellulitis. There were no drainable collections at that time, nor was there any evidence of significant necrotizing soft tissue infection. Later in the night, during nursing rounds, he was noted to have some increasing cellulitis that now extended around the circumference of the penis. Nurses were concerned with some changes of the skin. I was asked to see him in stat consultation. Radha is sleeping when I arrived to see him. He is easy to awake. He says maybe he has a little more pain around his penis, but otherwise feels about the same. He denies any subjective fevers. He has a Mcleod catheter in place that is patent and draining clear yellow urine. PFSH All Active Problems (Updated 06/28/24 @ 02:15 by Milton Springer MD) Liver function abnormality (Acute) Hypomagnesemia (Acute) Opiate dependence (Acute) Cellulitis of shaft of penis (Acute) Sepsis (Acute) Social History Smoking/Tobacco Use Status: Former Tobacco Use Smoking risk assessment performed?: Yes Alcohol Intake: former Housing: other Exam Other: There is mild erythema involving the glans of the penis, extending down the length of the shaft to the base. The integrity of the skin is all well- preserved. There is no fluctuance. There is no blistering. Erythema is minimal, and is mildly tender. The erythema actually appears to be less then what is marked on the skin. Scrotum is mildly erythematous. It is not edematous. Testicles are not tender. Perineum is normal. Results Last Vital Signs Temp 97.5 F L 06/28/24 22:51 Pulse 96 H 06/28/24 22:51 Resp 20 06/28/24 22:51 BP 117/73 06/28/24 22:51 Pulse Ox 93 06/28/24 22:51 Labs 06/28/24 07:02 06/28/24 07:02 Labs: Laboratory Results - last 24 hr 06/28/24 06/28/24 06/28/24 07:02 08:05 12:00 WBC 14.93 H RBC 4.91 Hgb 15.5 D Hct 46.3 MCV 94 MCH 31.6 MCHC 33.5 RDW 12.0 Plt Count 162 MPV 10.2 Sodium 140 Potassium 3.9 Chloride 104 Carbon Dioxide 29.4 Anion Gap 6.6 BUN 15 Creatinine 1.2 Est GFR (CKD-EPI 2020) 79.38 Glucose 106 Calcium 8.5 Magnesium 1.8 Total Bilirubin 2.7 H AST 30 ALT 90 H Alkaline Phosphatase 70 Total Protein 6.1 L Albumin 3.5 Urine Color Cancelled Urine Clarity Cancelled Urine pH Cancelled Ur Specific [place] Cancelled Urine Protein Cancelled Urine Ketones Cancelled Urine Blood Cancelled Urine Nitrite Cancelled Urine Bilirubin Cancelled Urine Urobilinogen Cancelled Ur Leukocyte Esterase Cancelled Urine Glucose Cancelled Random Vancomycin 8.4 06/28/24 18:15 WBC RBC Hgb Hct MCV MCH MCHC RDW Plt Count MPV Sodium Potassium Chloride Carbon Dioxide Anion Gap BUN Creatinine Est GFR (CKD-EPI 2020) Glucose Calcium Magnesium Total Bilirubin AST ALT Alkaline Phosphatase Total Protein Albumin Urine Color Urine Clarity Urine pH Ur Specific [place] Urine Protein Urine Ketones Urine Blood Urine Nitrite Urine Bilirubin Urine Urobilinogen Ur Leukocyte Esterase Urine Glucose Random Vancomycin 20.2
[2024-06-29 03:05] VITALS: BP 114/80; PULSE 83; RESP 19; TEMP 36.1; O2SAT 95
[2024-06-29 06:39] LABS: Abs Immature Grans 0.07 10^3/uL (0.0-0.06); Absolute Basophil Count 0.04 10^3/uL (0.0-0.2); Absolute Eosinophil Count 0.27 10^3/uL (0.0-0.7); Absolute Lymphocyte Count 1.66 10^3/uL (1.2-3.4); Absolute Monocyte Count 1.11 10^3/uL (0.1-0.8); Absolute Neutrophil Count 9.51 10^3/uL (1.2-6.7); Basophils % 0.3 %; Eosinophils % 2.1 %; HGB 14.5 g/dL (13.5-17.5); Immature Grans % 0.6 %; Lymphocytes % 13.1 %; MCH 31.7 pg (27.0-33.0); MCHC 33.7 % (32.0-36.0); MCV 94 fL (80-95); MPV 10.3 fL (8.0-11.0); Monocytes % 8.8 %; Neutrophils % 75.1 %; Platelet Count 177 10^3/uL (130-400); RBC 4.58 10^6/uL (4.36-5.78); RDW 12.1 % (11.8-14.1); RDW-SD 42.2 fL; WBC 12.66 10^3/uL (4.4-10.8)
[2024-06-29 06:57] LABS: Anion Gap 5.2 mmol/L (3-11); BUN 16 mg/dL (7-18); CO2 30.8 mmol/L (21.0-32.0); Calcium 8.2 mg/dL (8.5-10.1); Chloride 104 mmol/L (98-107); Glucose 94 mg/dL (74-106); Magnesium 1.9 mg/dL (1.8-2.4); Potassium 3.7 mmol/L (3.5-5.1); Sodium 140 mmol/L (136-145)
[2024-06-29 07:57] VITALS: BP 118/85; PULSE 95; RESP 19; TEMP 36; O2SAT 96
[2024-06-29] MEDS: Buprenorphine/Naloxone 8 mg/2 mg FILM 1 EACH SL (09:03)
[2024-06-29] MEDS: DULoxetine 30 MG CAP PO (09:03)
[2024-06-29] MEDS: Enoxaparin 40 MG/0.4 ML SYR SC (09:03)
[2024-06-29] MEDS: Senna TAB 1 TAB PO (09:03)
[2024-06-29] MEDS: Buprenorphine/Naloxone 12 mg/3 mg FILM 1 EACH SL (09:03)
[2024-06-29] MEDS: Ondansetron O.D.T. 4 MG TABEF PO (09:03)
[2024-06-29] MEDS: Docusate Sodium 100 MG CAP PO (09:03)
[2024-06-29] MEDS: Clindamycin 150 MG CAP 450 MG PO ×2 (09:55→13:05)
--- NOTE | 2024-06-29 09:58 | PGE_ITS ---
Date of Service Date of service: 06/29/24 Time of Service: 09:58 Assessment and Plan Assessment and plan (1) Cellulitis of shaft of penis: Status: Acute Assessment and plan: He is responding to antibiotics and still has no indication for surgical incisional drainage. As his blood cultures come back, we can adjust to oral antibiotics. If his blood cultures are negative, I might suggest clindamycin. We can probably discontinue his Mcleod catheter as his edema is decreasing. Subjective Subjective Interval history since last seen: His edema and pain are improving. He has not been febrile in the last 24 hours Exam Narrative Exam Narrative: He does not appear septic or toxic There is no evidence of fluctuance. There is less edema and erythema along the penis and scrotum. Objective Last Vital Signs Temp 36.0 C L 06/29/24 07:57 Pulse 95 H 06/29/24 07:57 Resp 19 06/29/24 07:57 BP 118/85 06/29/24 07:57 Pulse Ox 96 06/29/24 07:57 Laboratory Results - last 24 hr 06/28/24 06/28/24 06/29/24 12:00 18:15 05:55 WBC 12.66 H RBC 4.58 Hgb 14.5 Hct 43.0 MCV 94 MCH 31.7 MCHC 33.7 RDW 12.1 Plt Count 177 MPV 10.3 Immature Gran % 0.6 Neutrophils % 75.1 Lymphocytes % 13.1 Monocytes % 8.8 Eosinophils % 2.1 Basophils % 0.3 Nucleated RBC % 0.0 Absolute Neutrophils 9.51 H Absolute Lymphocytes 1.66 Absolute Monocytes 1.11 H Absolute Eosinophils 0.27 Absolute Basophils 0.04 Sodium 140 Potassium 3.7 Chloride 104 Carbon Dioxide 30.8 Anion Gap 5.2 BUN 16 Creatinine 1.0 Est GFR (CKD-EPI 2020) 98.80 Glucose 94 Calcium 8.2 L Magnesium 1.9 Random Vancomycin 8.4 20.2 Time Spent with Patient Time Spent with Patient: <25 minutes Time was spent: preparing to see the patient(eg.review tests), obtaining and/or reviewing separately otained hiistory and referring, communicating with other [facility] regular senior care provider
--- NOTE | 2024-06-29 10:46 | CMDISCH_ITS ---
Date of service: 06/29/24 Time of Service: 10:46 LACE Index Scoring Tool Questions: Length of Stay (in days): 1 Was the patient admitted via the E.D.?: Yes E.D. Visits: 1 Answers: Total Score: 5 Risk of Readmission: Low Risk Care Management Discharge Plan Reason for Hospitalization: Cellulitis Discharge Plan: Radha will be discharged to the [facility]. He will follow up with his facility providers and discharge plan of care. He w ill be transported by DOC. CM has notified the correction. Patient/Family Education Needs: Review of discharge instructions, activity, limitation, and plan of care. Discuss Ask Me Three. SDOH Health Related Social Needs: No Data to Display
[2024-06-29] MEDS: Lactobacillus Acidophilus CAP 1 CAP PO ×2 (11:36→13:05)
--- NOTE | 2024-06-29 12:04 | DSE_ITS ---
Date of service: 06/29/24 Time of Service: 12:04 DS: Diagnosis Discharge Diagnosis (1) Cellulitis of shaft of penis: Status: Acute Discharge Plan Disposition [facility] Condition: Improving Discharge Details Reason For Visit: cellulitis Admit Date/Time: 06/28/24 01:43 Admit Provider: Milton Springer Attending Provider: Milton Springer Primary Care Provider: Unknown,Unknown Hospital Course Hospital Course: This 39 yo male patient currently incarcerated, with past medical history of substance abuse on suboxone, depression presented to the ED on 06/27/24 with sudden onset ofleft sided penile/ groin redness, pain, swelling, fever of 103 Fahrenheit. He denied urethral discharge and concerns for an STD. Mcleod inserted for reported inability to void. Work-up was significant for leukocytosis at 14.99, chemistry was unremarkable except for minimal transaminitis that improved , UA negative. The patient was admitted to hospitalist service on the medical surgical floor for penile cellulitis, urinary retention. In the ED the patient received clindamycin, and subsequently treated with vancomycin and Zosyn. Blood cultures were negative at 24 hours and the patient was able to void. Urology consult completed with recommendation for oral clindamycin. Surgical consult completed with recommendation to keep his pelvis elevated and penile sling to reduce the edema as well as cold packs for comfort. The patient will be discharged to his previous accommodations at the correctional facility on short course of oral clindamycin and probiotics; chlamydia results were still pending. The patient is to be seen by the outpatient provider with 7 days of discharge. Recommendation for outpatient follow-up: Completion of treatment LFT's Chlamydia test results Discussed with Dr. Cunha [facility] and New Rx's Prescriptions: New clindamycin HCl 150 mg Capsule 450 mg PO TID Qty: 63 0RF Bio-K plus 50 billion cell capsule,delayed release(DR/EC) 1 cap PO DAILY Qty: 10 0RF Rx Instructions: Give 3 hours apart from antibiotics Continued buprenorphine-naloxone 8-2 mg film 1 film sublingual DAILY Rx Instructions: with 01/09 film, total dose = 20 mg-5 mg daily (dose confirmed w/jail) ibuprofen [Addaprin] 200 mg tablet 600 mg PO TID duloxetine [Cymbalta] 30 mg capsule,delayed release(DR/EC) 30 mg PO DAILY acetaminophen 325 mg capsule 650 mg PO BID PRN calcium polycarbophil [Fiber (calcium polycarbophil)] 625 mg tablet 1,250 mg PO BID docusate sodium 100 mg capsule 100 mg PO DAILY sennosides [Black-Draught Lax-Senna] 8.6 mg tablet 8.6 mg PO DAILY hydroxyzine HCl 50 mg tablet 50 mg PO DAILY PRN testosterone enanthate 100 mg/0.5 mL auto-injector 75 mg subcut QWEEK buprenorphine-naloxone 12-3 mg film 1 film sublingual DAILY Rx Instructions: with 09/08 film, total dose = 20 mg-5 mg daily (dose confirmed w/jail) Discharge Instructions Activity:: Activity as Tolerated Equipment/Supplies:: No Equipment Needed Diet:: As Tolerated Discharge Orders Discharge Orders: Discharge Order (Routine); Ordered 06/29/24 Ordered By: Crystal Peters DS: Summary Time Spent with Patient providing and/or coordinating discharge services: Greater than 30 minutes Status at Discharge Functional status at discharge: independent ambulation Overall status at discharge: patient is progressing back to baseline Mental Status: mental status grossly normal Speech and Movement: speech and movement normal Mood: congruent mood Affect: normal affect Quality:SDOH Health Related Social Needs: No Data to Display Exam Const General: no acute distress HENMT Head: normal to inspection Resp Auscultation: clear to auscultation bilaterally Cardio Rate: regular rate Rhythm: regular rhythm Heart Sounds: S1 normal and S2 normal Penis: erythematous Other: Improving area of erythema/edema of the penis extending and groin area Skin General skin exam: erythema (improving ) and no fluctuance (to penis and groin areas) Trauma: no abrasions Psych Mental Status: mental status grossly normal Speech and Movement: speech and movement normal Mood: congruent mood Affect: normal affect DS: Data Vitals/I&O Vitals and I&O: Vital Signs Temperature 36.0 C L 06/29/24 07:57 Temperature Source Temporal Artery Scan 06/29/24 07:57 Pulse 95 H 06/29/24 07:57 Pulse Rhythm Regular 06/28/24 03:24 Pulse 86 06/28/24 02:46 Respiratory Rate 19 06/29/24 07:57 Respiratory Effort Normal 06/28/24 03:24 Respiratory Depth Normal 06/28/24 03:24 Respiratory Pattern Normal 06/28/24 03:24 Blood Pressure 118/85 06/29/24 07:57 Blood Pressure Mean 96 06/29/24 07:57 Blood Pressure Position Sitting 06/27/24 23:29 Pulse Oximetry 96 06/29/24 07:57 Oxygen Delivery Method Room Air 06/29/24 07:57 Oxygen Flow Rate 0 06/29/24 07:57 Pain Level 6 06/29/24 09:12 Intake & Output 06/28/24 06/29/24 06/29/24 23:59 11:59 23:59 Intake Total 1760 / 5010 450 / 450 Output Total 950 / 2600 1100 / 1100 Balance 810 / 2410 -650 / -650 Intake: IV 1460 / 4410 450 / 450 Oral 300 / 600 Output: Urine 950 / 2600 1100 / 1100 Other: Urine Color Light Crista Light Crista Urine Appearance Clear Clear Urine Odor None Data Completed and Pending Labs on day of discharge: Labs from last 24 hours 06/29/24 06/28/24 06/28/24 05:55 18:15 12:00 WBC 12.66 H RBC 4.58 Hgb 14.5 Hct 43.0 MCV 94 MCH 31.7 MCHC 33.7 RDW 12.1 Plt Count 177 MPV 10.3 Immature Gran % 0.6 Neutrophils % 75.1 Lymphocytes % 13.1 Monocytes % 8.8 Eosinophils % 2.1 Basophils % 0.3 Nucleated RBC % 0.0 Absolute Neutrophils 9.51 H Absolute Lymphocytes 1.66 Absolute Monocytes 1.11 H Absolute Eosinophils 0.27 Absolute Basophils 0.04 Sodium 140 Potassium 3.7 Chloride 104 Carbon Dioxide 30.8 Anion Gap 5.2 BUN 16 Creatinine 1.0 Est GFR (CKD-EPI 2020) 98.80 Glucose 94 Calcium 8.2 L Magnesium 1.9 Random Vancomycin 20.2 8.4 Chlamydia DNA Probe Chlamydia/GC DNA Source N.gonorrhoeae DNA Probe 06/28/24 11:40 WBC RBC Hgb Hct MCV MCH MCHC RDW Plt Count MPV Immature Gran % Neutrophils % Lymphocytes % Monocytes % Eosinophils % Basophils % Nucleated RBC % Absolute Neutrophils Absolute Lymphocytes Absolute Monocytes Absolute Eosinophils Absolute Basophils Sodium Potassium Chloride Carbon Dioxide Anion Gap BUN Creatinine Est GFR (CKD-EPI 2020) Glucose Calcium Magnesium Random Vancomycin Chlamydia DNA Probe Pending Chlamydia/GC DNA Source Pending N.gonorrhoeae DNA Probe Pending Preliminary micro results at discharge 06/27/24 23:38 Blood Blood Culture - Preliminary NO GROWTH 24 HOURS 06/27/24 23:40 Blood Blood Culture - Preliminary NO GROWTH 24 HOURS PFSH All Active Problems (Updated 06/28/24 @ 02:15 by Milton Springer MD) Liver function abnormality (Acute) Hypomagnesemia (Acute) Opiate dependence (Acute) Cellulitis of shaft of penis (Acute) Sepsis (Acute) Social History Smoking/Tobacco Use Status: Former Tobacco Use Smoking risk assessment performed?: Yes Alcohol Intake: former Housing: other Time Spent with Patient Time Spent with Patient: 70-84 minutes4 Time was spent: preparing to see the patient(eg.review tests), obtaining and/or reviewing separately otained hiistory, ordering medications,tests, procedures, referring, communicating with other health auto care center manager, indepentently interpreting results, counseling the patient and care coordination
[2024-06-29 12:25] LABS: Chlamydia Result Negative (Negative); GC Result Negative (Negative)
[2024-06-29] MEDS: Potassium Chloride 20 MEQ TABCR 40 MEQ PO (13:05)
== END 2024-06-29 13:54 | DRG 872 ==
LOC: ER 06-28 02:00 → MS 06-28 03:23
PROVIDERS: Admitting Provider Family Medicine; Emergency Provider Student in an Organized Health Care Education/Training Program; Responsible Provider Nurse Practitioner Acute Care; Visit Provider Family Medicine
DX: A41.9 Sepsis, unspecified organism (principal); F11.20 Opioid dependence, uncomplicated; N48.22 Cellulitis of corpus cavernosum and penis; E83.42 Hypomagnesemia; R94.5 Abnormal results of liver function studies; Z87.891 Personal history of nicotine dependence; F32.A Depression, unspecified; R33.9 Retention of urine, unspecified
CPT/HCPCS: 00123; 36415; 51702; 80048; 80053; 82550; 84145; 85027; 85652; 87040; 87491; 87591; 96365; 96366; 96367; 96375; 99291; J1650; 74177; 80202; 81003; 83605; 83735; 85025; 86140; 99223; 99239; J0131; J0737; J2543; J3370; J3475; J3490

== ENCOUNTER 2024-06-30 14:01 | Emergency (ER) | payer OTHER, SELFPAY ==
[2024-06-30 14:02] VITALS: BP 138/95; PULSE 100; RESP 20; TEMP 36.9; O2SAT 98
[2024-06-30] MEDS: Ondansetron O.D.T. 4 MG TABEF PO (14:56)
[2024-06-30] MEDS: Acetaminophen 500 MG TAB 1000 MG PO (14:56)
[2024-06-30] MEDS: Ibuprofen 600 MG TAB PO (14:56)
--- NOTE | 2024-06-30 14:56 | ED.GENADUL_ITS ---
Discharge Plan Disposition Patient Disposition: Home Condition: Stable Discharge Details Clinical Impression: Cellulitis of shaft of penis Primary Care Provider: Unknown,Unknown ED Provider: Geni Alves Home Meds and New Rx's Prescriptions: No Action buprenorphine-naloxone 8-2 mg film 1 film sublingual DAILY Rx Instructions: with 01/09 film, total dose = 20 mg-5 mg daily (dose confirmed w/nursing home) ibuprofen [Addaprin] 200 mg tablet 600 mg PO TID duloxetine [Cymbalta] 30 mg capsule,delayed release(DR/EC) 30 mg PO DAILY acetaminophen 325 mg capsule 650 mg PO BID PRN calcium polycarbophil [Fiber (calcium polycarbophil)] 625 mg tablet 1,250 mg PO BID docusate sodium 100 mg capsule 100 mg PO DAILY sennosides [Black-Draught Lax-Senna] 8.6 mg tablet 8.6 mg PO DAILY hydroxyzine HCl 50 mg tablet 50 mg PO DAILY PRN testosterone enanthate 100 mg/0.5 mL auto-injector 75 mg subcut QWEEK buprenorphine-naloxone 12-3 mg film 1 film sublingual DAILY Rx Instructions: with 09/08 film, total dose = 20 mg-5 mg daily (dose confirmed w/nursing home) clindamycin HCl 150 mg Capsule 450 mg PO TID Qty: 63 0RF Bio-K plus 50 billion cell capsule,delayed release(DR/EC) 1 cap PO DAILY Qty: 10 0RF Rx Instructions: Give 3 hours apart from antibiotics Discharge Instructions Instructions: Cellulitis (Skin Infection), Adult ED Additional Instructions: You were seen in the emergency department today for evaluation of worsening swelling and drainage from the cellulitis on your left side of your penis. In our department you do full physical examination performed, had an ultrasound that did not show any abscess, and we did contact urology to discuss this change. They recommend no change to the plan, you need to continue taking your clindamycin until it is gone, even if you start to feel better. You can continue to use elevation of the pelvis and the scrotum with your supportive briefs, and we did place a gauze and Coban wrap around your penis, which you can wear for comfort to keep the area clean and dry. Please do not put any topical ointments on the area, but it is okay to shower and let soapy water run over that region. Reasons to come back to the emergency department include fever chills, sudden change or worsening of your pain, redness and swelling that spreads upward, or inability to urinate. Thank you for allowing us to be part of your care. HPI General Mode of arrival: ambulatory . Date/Time Provider Initiated Documentation: 06/30/24 14:04 . Limitations to Documentation: no limitations . Information obtained by: patient and old records reviewed . HPI Narrative: This is a 39-year-old male patient who was discharged from our hospital yesterday after an admission for sepsis without septic shock due to a cellulitis of the left side of the penis and groin. The patient reports that he was discharged on a course of oral antibiotics, and began to notice a point of drainage at the left mid?proximal penile shaft after discharge. He states that it is a clear yellowish fluid that is coming out, states that he has otherwise been without changes in his symptoms, denies fever or chills, endorses mild nausea but no vomiting, has not noted any change in the redness or swelling but states that the swelling has not began to improve. He is elevating his pelvis and utilizing the truss for support. Related Data Home Medications ?Medication ?Instructions ?Recorded ?Confirmed acetaminophen 325 mg capsule 650 mg PO BID PRN 06/28/24 06/30/24 buprenorphine 12 mg-naloxone 3 mg 1 film sublingual DAILY 06/28/24 06/30/24 sublingual film buprenorphine 8 mg-naloxone 2 mg 1 film sublingual DAILY 06/28/24 06/30/24 sublingual film calcium polycarbophil 625 mg 1,250 mg PO BID 06/28/24 06/30/24 tablet (Fiber (calcium polycarbophil)) docusate sodium 100 mg capsule 100 mg PO DAILY 06/28/24 06/30/24 duloxetine 30 mg capsule,delayed 30 mg PO DAILY 06/28/24 06/30/24 release (Cymbalta) hydroxyzine HCl 50 mg tablet 50 mg PO DAILY PRN 06/28/24 06/30/24 ibuprofen 200 mg tablet (Addaprin) 600 mg PO TID 06/28/24 06/30/24 sennosides 8.6 mg tablet 8.6 mg PO DAILY 06/28/24 06/30/24 (Black-Draught Lax-Senna) testosterone enanthate 100 mg/0.5 75 mg subcut QWEEK 06/28/24 06/30/24 mL subcutaneous auto-injector L. acidsaracaseirhamnosus 50 1 cap PO DAILY #10 caps 06/29/24 06/30/24 billion cell capsule,delayed release (Bio-K plus) clindamycin HCl 150 mg capsule 450 mg (3 x 150 mg) PO TID #63 caps 06/29/24 06/30/24 Previous Rx's ?Medication ?Instructions ?Recorded L. acidophiluscasei,rhamnosus 50 1 cap PO DAILY #10 caps 06/29/24 billion cell capsule,delayed release (Bio-K plus) clindamycin HCl 150 mg capsule 450 mg (3 x 150 mg) PO TID #63 caps 06/29/24 Allergies Allergy/AdvReac Type Severity Reaction Status Date / Time No Known Allergies Allergy Verified 06/30/24 14:09 General Stated Complaint: Male Reproductive Problem NILDA: 3 Exam Narrative Exam Narrative: Gen: Awake and alert, in no apparent distress HEENT: Non-icteric sclera Neck: Supple Lungs: No apparent respiratory distress, normal respiratory effort. CV: Appears well perfused, strong distal pulses Abdomen: Non-distended, soft, nontender to palpation : Examination supervised by MOIRA Mendoza, revealing circumcised male genitalia with notable edema to the left side of the penile shaft extending to the base of the penis and left groin. Mild redness and induration, and an approximately 1 cm area of small ulceration without active drainage. No fluctuance palpable, no discharge from the urethral meatus. No changes to the scrotal skin, bilaterally descended testicles without swelling, pain, or abnormal lie MSK: Moves 4 extremities without apparent limitation in ROM Skin: Visualized skin without rashes, cyanosis. Neuro: Normal Gait, no obvious focal deficits or facial asymmetry. Speaks in full, clear sentences. Psych: Appropriate for situation. Course Vital Signs Vital signs: Vital Signs Temperature 36.9 C 06/30/24 14:02 Pulse 100 H 06/30/24 14:02 Respiratory Rate 20 06/30/24 14:02 Blood Pressure 138/95 H 06/30/24 14:02 Pulse Oximetry 98 06/30/24 14:02 Temperature 36.9 C 06/30/24 14:02 Pulse 100 H 06/30/24 14:02 Respiratory Rate 20 05/24/25 14:02 Blood Pressure 138/95 H 06/30/24 14:02 Pulse Oximetry 98 06/30/24 14:02 Oxygen Delivery Method Room Air 06/30/24 14:02 Oxygen Flow Rate 0 06/30/24 14:02 Pain Level 8 06/30/24 14:02 Procedure Abscess Drainage Provider that performed the procedure: Geni Alves Medical Decision Making This is a 39-year-old male patient presenting for reevaluation of penile cellulitis with new serous drainage. Differential includes but is not limited to ongoing cellulitis, certainly considered abscess and the patient is without fluctuance or characteristic findings on ultrasound performed by this provider. He has no evidence for sepsis, bacteremia, and is urinating appropriately, making obstructive uropathy less likely. I reviewed the patient's prior laboratory studies, note that he had a negative gonorrhea and Chlamydia test, and given his well appearance, and his hemodynamic stability I do not see that there is an urgent indication to repeat laboratory studies today. I did reach out to Dr. Vazquez with urology, who states that no additional interventions are recommended since he is already draining fluid, and would not require incision and drainage. He recommended no topical treatments, encouraged continuation of antibiosis, and recommended a Coban and Telma wrap to keep the area clean and protected. The patient will continue pelvic elevation and scrotal support, and has scheduled follow-up in approximately 1 week. At this time, the patient has had a full medical evaluation and is safe for discharge to home. They are hemodynamically stable, ambulatory, and tolerating PO. They are understanding of the follow-up plan and return precautions. They left our facility without incident. Geni Alves MD Quality:SDOH Health Related Social Needs: 2 No Data to Display PFSH All Active Problems (Updated 06/30/24 @ 14:59 by Geni Alves MD) Liver function abnormality (Acute) Hypomagnesemia (Acute) Opiate dependence (Acute) Cellulitis of shaft of penis (Acute) Social History Smoking/Tobacco Use Status: Former Tobacco Use Smoking risk assessment performed?: Yes Alcohol Intake: former Housing: other POCUS Exam (ED) Limited Soft Tissue Exam DATE OF EXAM: 06/30/24 TIME OF EXAM: 15:00 PROVIDER THAT PERFORMED THE STUDY: Geni Alves LOCATION OF EXAM: Penis REASON FOR EXAM: Cellulitis VISUALIZED STRUCTURES: Rojas's fascia, Corpus cavernosum and Other structure: superficial tissues PERTINENT FINDINGS/IMPRESSION: Other impression: Cellulitis, no abscess, no free air or fascial thickening . Exam Complete
[2024-06-30 15:13] VITALS: BP 132/83; PULSE 85; RESP 18; O2SAT 95
== END 2024-06-30 15:15 | disposition home or self-care (01) ==
PROVIDERS: Emergency Provider Emergency Medicine
DX: N48.22 Cellulitis of corpus cavernosum and penis (principal); Z87.891 Personal history of nicotine dependence
CPT/HCPCS: 76857; 99283

== ENCOUNTER 2024-07-03 09:17 | Observation (INO) | payer OTHER, SELFPAY ==
[2024-07-03] VITALS (31 sets, daily range): BP systolic 114–137; BP diastolic 76–103; PULSE 61–94; RESP 13–23; TEMP 35.8–36.8; O2SAT 94–98; BMI 29.9
--- NOTE | 2024-07-03 09:19 | ED.GENADUL_ITS ---
Discharge Plan Disposition Patient Disposition: Admit to [facility] Discharge Details Clinical Impression: Abscess of shaft of penis Admit Date/Time: 07/03/24 12:28 Admit Provider: Dillon Vazquez Attending Provider: Dillon Vazquez Primary Care Provider: Paige Wilson ED Provider: Cezar Fonseca [facility] General Date/Time Provider Initiated Documentation: 07/03/24 09:18 . HPI Narrative: MDM This is an uncomfortable appearing normothermic and not tachycardic 39-year-old male with known cellulitis of shaft of penis complicated now by abscess for which urology was consulted after patient was made n.p.o. and treated for sepsis with broad-spectrum antibiotics using piperacillin/tazobactam and vancomycin following blood cultures and lactate. No pain out of proportion and patient is nontoxic so my suspicion for Ines's gangrene is low so do not feel that patient requires a CT scan of his pelvis. Anticipate patient will require operative drainage with urology. Will monitor patient in the emergency department. No abdominal pain so I suspicion for intra-abdominal source is low. Will obtain urinalysis though patient is not having dysuria nor frequency so my suspicion is low for UTI. Patient is not sexually active. I spoke with Dr. Vazquez who graciously agreed to accept the patient to the hospital. HPI The patient presents for evaluation of a penile infection. He was diagnosed with a penile infection last Tuesday and has been undergoing treatment with oral antibiotics for the past 5 days. Despite this, he reports a worsening condition characterized by an increase in the volume and a change in the color of the discharge from the side of his penis. He notes the presence of 3 to 4 openings on the side of his penis, one of which opened up during a bandage change today. He was advised to consult with Dr. Guzman, a urologist. He expresses concern about the appropriateness of the antibiotic treatment given its duration and dosage. He was previously hospitalized for the same condition and returned here for a follow-up visit. During his hospital stay, he underwent a CT and other tests, but no procedures were performed. At that time, it was believed that the infection would resolve without intervention. However, the condition has since deteriorated, with the wound opening up and discharging pus. He reports no other infections or medical conditions. He has no history of HIV, AIDS, or STDs, and does not engage in IV drug use. He experienced a fever of 103 degrees last week, and currently reports excessive sweating followed by cold chills. His urinary function is normal, although he finds it uncomfortable to urinate while lying down. He experiences severe pain when standing up, which he describes as worse than kidney stones. He also reports testicular pain. He is not currently sexually active and has not engaged in sexual activity for over 2 years. Exam General: Well-appearing in no acute distress speaking in complete sentences. Head: Normocephalic, atraumatic. Eye: Extraocular eye movements intact. No conjunctival injection. No scleral icterus. Ear, nose, mouth, throat: Grossly normal inspection. Normal voice, handling secretions normally. Neck: Trachea midline. Cardiovascular: Well-perfused distal extremities. Respiratory: Nonlabored respiration. Gastrointestinal: Nondistended abdomen. : On the left side of the shaft of the penis there is an approximately 3 x 3 cm abscess with spontaneous purulent drainage. Circumcised penis. No significant surrounding signs of cellulitis. Musculoskeletal: No edema. Moving all 4 extremities spontaneously. Skin: Normal for age and race, grossly normal temperature and turgor. No acute rash. Neurologic: Alert and appropriate, no apparent acute deficits. Psychiatric: Mood and manner are appropriate. Grooming and personal hygiene are appropriate. Related Data Home Medications ?Medication ?Instructions ?Recorded ?Confirmed acetaminophen 325 mg capsule 650 mg PO BID PRN 06/28/24 07/03/24 buprenorphine 12 mg-naloxone 3 mg 1 film sublingual DAILY 06/28/24 07/03/24 sublingual film buprenorphine 8 mg-naloxone 2 mg 1 film sublingual DAILY 06/28/24 07/03/24 sublingual film calcium polycarbophil 625 mg 1,250 mg PO BID 06/28/24 07/03/24 tablet (Fiber (calcium polycarbophil)) docusate sodium 100 mg capsule 100 mg PO DAILY 06/28/24 07/03/24 duloxetine 30 mg capsule,delayed 30 mg PO DAILY 06/28/24 07/03/24 release (Cymbalta) hydroxyzine HCl 50 mg tablet 50 mg PO DAILY PRN 06/28/24 07/03/24 ibuprofen 200 mg tablet (Addaprin) 600 mg PO TID 06/28/24 07/03/24 sennosides 8.6 mg tablet 8.6 mg PO DAILY 06/28/24 07/03/24 (Michaelle Daily-George) testosterone enanthate 100 mg/0.5 75 mg subcut QWEEK 06/28/24 07/03/24 mL subcutaneous auto-injector L. acidophilus,casei,rhamnosus 50 1 cap PO DAILY #10 caps 06/29/24 07/03/24 billion cell capsule,delayed release (Bio-K plus) clindamycin HCl 150 mg capsule 450 mg (3 x 150 mg) PO TID #63 caps 06/29/24 07/03/24 Previous Rx's ?Medication ?Instructions ?Recorded L. acidophilus,casei,rhamnosus 50 1 cap PO DAILY #10 caps 06/29/24 billion cell capsule,delayed release (Bio-K plus) clindamycin HCl 150 mg capsule 450 mg (3 x 150 mg) PO TID #63 caps 06/29/24 Allergies Allergy/AdvReac Type Severity Reaction Status Date / Time No Known Allergies Allergy Verified 07/03/24 09:33 General NILDA: 3 Medical Decision Making Quality:SDOH Health Related Social Needs: 2 No Data to Display PFSH All Active Problems (Updated 07/03/24 @ 11:17 by Cezar Fonseca MD) Abscess of shaft of penis (Acute) Liver function abnormality (Acute) Hypomagnesemia (Acute) Opiate dependence (Acute) Cellulitis of shaft of penis (Acute) Social History Smoking/Tobacco Use Status: Former Tobacco Use Smoking risk assessment performed?: Yes Alcohol Intake: former Housing: other Do you feel safe at home: Yes Do you feel safe in your relationship?: Yes
[2024-07-03] MEDS: Normal Saline 1,000 ML 1000 ML IV (10:45)
--- NOTE | 2024-07-03 10:52 | ANES.PREOP_ITS ---
General Info Date of Service Date Performed: 07/03/24 Height: 6 ft Weight: 100.244 kg Body Mass Index (BMI): 29.9 Meds Allergies and Home Medications Allergies Allergy/AdvReac Type Severity Reaction Status Date / Time No Known Allergies Allergy Verified 07/03/24 09:33 Home Medication ?Medication ?Instructions ?Recorded acetaminophen 325 mg capsule 650 mg PO BID PRN 06/28/24 buprenorphine 12 mg-naloxone 3 mg 1 film sublingual DAILY 06/28/24 sublingual film buprenorphine 8 mg-naloxone 2 mg 1 film sublingual DAILY 06/28/24 sublingual film calcium polycarbophil 625 mg 1,250 mg PO BID 06/28/24 tablet (Fiber (calcium polycarbophil)) docusate sodium 100 mg capsule 100 mg PO DAILY 06/28/24 duloxetine 30 mg capsule,delayed 30 mg PO DAILY 06/28/24 release (Cymbalta) hydroxyzine HCl 50 mg tablet 50 mg PO DAILY PRN 06/28/24 ibuprofen 200 mg tablet (Addaprin) 600 mg PO TID 06/28/24 sennosides 8.6 mg tablet 8.6 mg PO DAILY 06/28/24 (Black-Draught Lax-Senna) testosterone enanthate 100 mg/0.5 75 mg subcut QWEEK 06/28/24 mL subcutaneous auto-injector L. acidophilus,casei,rhamnosus 50 1 cap PO DAILY #10 caps 06/29/24 billion cell capsule,delayed release (Bio-K plus) clindamycin HCl 150 mg capsule 450 mg (3 x 150 mg) PO TID #63 caps 06/29/24 Current Visit Medications: Current Medications Generic Name Dose Route Start Last Admin Trade Name Freq PRN Reason Stop Dose Admin Vancomycin HCl 2,000 mg/ 500 mls @ 333.3333 mls/hr 07/03/24 10:31 Sodium Chloride IVPB 07/03/24 12:00 STAT STA Piperacillin Sod/Tazobactam 50 mls @ 100 mls/hr 07/03/24 10:31 Sod 3.375 gm/ Sodium Chloride IVPB 07/03/24 11:00 NOW ONE Sodium Chloride 1,000 mls @ 1,000 mls/hr 07/03/24 10:31 Saline 1000ml Bag IV 07/03/24 11:30 BOLUS ONE PFS Active Problems Active Problems: Problem Status Onset Code Liver function abnormality Acute R94.5 Hypomagnesemia Acute E83.42 Opiate dependence Acute F11.20 Cellulitis of shaft of penis Acute N48.22 Tobacco Smoking/Tobacco Use Status: Former Tobacco Use Alcohol Alcohol Intake: former Vital Signs and Lab Results Vital Signs Most Recent Vital Signs in EMR: Most Recent Vital Signs Temp Pulse Resp BP Pulse Ox 36.8 C 88 20 134/86 95 07/03/24 09:32 07/03/24 09:32 07/03/24 09:32 07/03/24 09:32 07/03/24 09:32 Lab Results 07/03/24 10:32 07/03/24 11:20 Blood Type / Crossmatch: 2 No Data to Display Complete Blood Count: 2 White Blood Count 11.73 10^3/uL (4.4-10.8) H 07/03/24 10:32 Red Blood Count 4.99 10^6/uL (4.36-5.78) 07/03/24 10:32 Hemoglobin 15.6 g/dL (13.5-17.5) 07/03/24 10:32 Hematocrit 47.2 % (40.0-50.0) 07/03/24 10:32 Platelet Count 258 10^3/uL (130-400) 07/03/24 10:32 Venous Blood Lactate 1.1 mmol/L (<or=2.0) 07/03/24 10:32 Complete Metabolic Panel: 2 Sodium 140 mmol/L (136-145) 06/29/24 05:55 Potassium 3.7 mmol/L (3.5-5.1) 06/29/24 05:55 Chloride 104 mmol/L (98-107) 06/29/24 05:55 Carbon Dioxide 30.8 mmol/L (21.0-32.0) 06/29/24 05:55 BUN 16 mg/dL (7-18) 06/29/24 05:55 Creatinine 1.0 mg/dL (0.70-1.30) 06/29/24 05:55 Est GFR (CKD-EPI 2020) 98.80 (mL/min/1.73m2) 06/29/24 05:55 Magnesium 1.9 mg/dL (1.8-2.4) 06/29/24 05:55 Calcium 8.2 mg/dL (8.5-10.1) L 06/29/24 05:55 Albumin 3.5 g/dL (3.4-5.0) 06/28/24 07:02 Glucose 94 mg/dL (74-106) 06/29/24 05:55 C-Reactive Protein 5.72 mg/dL (<or=0.5) H 06/27/24 23:38 Liver Function Panel: 2 Alanine Aminotransferase (ALT/SGPT) 90 U/L (16-63) H 06/28/24 0 7:02 Aspartate Amino Transf (AST/SGOT) 30 U/L (15-37) 06/28/24 07:02 Coagulation Panel: 2 No Data to Display Cardiac Panel: 2 Creatine Kinase 190 U/L (39-308) 06/27/24 Arterial Blood Gas: 2 No Data to Display Venous Blood Gas: 2 No Data to Display Pancreas Panel: 2 No Data to Display Thyroid Panel: 2 No Data to Display Infectious Disease: 2 Neisseria gonorrhoeae DNA Probe Negative (Negative) 06/28/24 1 1:40 Blood Cultures: 2 No Data to Display Toxicology Panel: 2 No Data to Display Anesthesia Assessment and Plan Anesthesia History Personal History: No History of Anesthesia Complications Family History: No Family History of Anesthesia Complications Exercise Tolerance Exercise Tolerance: Metabolic Equivalents>4 Pertinent Negatives Pertinent Negatives: No Symptoms of GERD, No Major Cardiovascular Symptoms or Complaints, No Major Pulmonary Symptoms or Complaints and No History of CVA/TIA Cardiac & Pulmonary Exam Cardiac Exam: Normal S1/S2 Heart Sounds Pulmonary Exam: Clear Bilateral Breath Sounds Implantable Cardiac Device Does patient have a Pacemaker or an ICD?: No Airway Exam Known Difficult Airway: No Mallampati Class: 2 Mouth Opening: Normal (> 3cm) Thyromental Distance: Greater than 3 cm Neck Range of Motion: Full ROM Neck Circumference: Normal Teeth Condition: Normal Dentition ASA Classification ASA Score: ASA 2 Emergency Case?: Yes NPO Status NPO Status: NPO Clears >2 hours, Solids >8 hours Anesthesia Plan Resuscitation Status: Full Code Anesthesia Technique: General Anesthesia Airway Planned: Natural Airway Monitors Used: Standard Monitors
[2024-07-03] MEDS: MORPHine 4 MG/ML SYR IVP (11:28)
[2024-07-03 11:29] LABS: Lactate 1.1 mmol/L (<or=2.0)
[2024-07-03 11:32] LABS: Abs Immature Grans 0.11 10^3/uL (0.0-0.06); Absolute Basophil Count 0.11 10^3/uL (0.0-0.2); Absolute Eosinophil Count 0.34 10^3/uL (0.0-0.7); Absolute Lymphocyte Count 2.01 10^3/uL (1.2-3.4); Absolute Monocyte Count 1.14 10^3/uL (0.1-0.8); Absolute Neutrophil Count 8.04 10^3/uL (1.2-6.7); Basophils % 0.9 %; Eosinophils % 2.9 %; HCT 47.2 % (40.0-50.0); HGB 15.6 g/dL (13.5-17.5); Immature Grans % 0.9 %; Lymphocytes % 17.1 %; MCH 31.3 pg (27.0-33.0); MCHC 33.1 % (32.0-36.0); MCV 95 fL (80-95); MPV 9.6 fL (8.0-11.0); Monocytes % 9.7 %; Neutrophils % 68.5 %; Platelet Count 258 10^3/uL (130-400); RBC 4.99 10^6/uL (4.36-5.78); RDW 12.2 % (11.8-14.1); RDW-SD 42.7 fL; WBC 11.73 10^3/uL (4.4-10.8)
[2024-07-03 11:51] LABS: Anion Gap 6.1 mmol/L (3-11); BUN 20 mg/dL (7-18); CO2 29.9 mmol/L (21.0-32.0); CREATININE 1.2 mg/dL (0.70-1.30); Calcium 9.4 mg/dL (8.5-10.1); Chloride 104 mmol/L (98-107); Estimated GFR 79.38 (mL/min/1.73m2); Glucose 80 mg/dL (74-106); Potassium 3.8 mmol/L (3.5-5.1); Sodium 140 mmol/L (136-145)
--- NOTE | 2024-07-03 11:54 | W.PM.HP.N ---
Date of service: 07/03/24 Time of Service: 11:54 Assessment and Plan Assessment and plan (1) Abscess of shaft of penis: Status: Acute Assessment and plan: Now that he has developed an abscess on the penile skin, we will bring him to the operating room for an incisional drainage. We will obtain wound cultures and wash the area out. History of Present Illness History of Present Illness Chief Complaint: Penile abscess Narrative: This is a 39-year-old gentleman who was recently hospitalized with penile cellulitis. His blood cultures showed no bacterial growth. At the time of his hospitalization, he had no drainable fluid collection, so he was treated with antibiotics alone. Over the weekend, he began having some drainage from the left side of the penis with no fluctuance. We continued with local care. He comes in today with fluctuance and purulent drainage from the penis. He has no extension to the scrotum or groin. He has no difficulty voiding. He is not having any dysuria or fevers. Review of Systems Narrative: No fevers or chills No vision change or dysphasia No diabetes or thyroid dysfunction No shortness of breath, cough or hemoptysis No chest pain or palpitations No nausea, vomiting, hepatitis, ulcers, jaundice No seizures, strokes or peripheral neuropathy No bleeding disorders or anemia No gout PFSH All Active Problems (Updated 07/03/24 @ 11:17 by Cezar Fonseca MD) Abscess of shaft of penis (Acute) Liver function abnormality (Acute) Hypomagnesemia (Acute) Opiate dependence (Acute) Cellulitis of shaft of penis (Acute) Social History Smoking/Tobacco Use Status: Former Tobacco Use Smoking risk assessment performed?: Yes Alcohol Intake: former Housing: other Do you feel safe at home: Yes Do you feel safe in your relationship?: Yes Meds Allergies and Home Medications Allergies Allergy/AdvReac Type Severity Reaction Status Date / Time No Known Allergies Allergy Verified 07/03/24 09:33 Home Medications ?Medication ?Instructions ?Recorded ?Confirmed ?Type acetaminophen 325 mg capsule 650 mg PO BID PRN 06/28/24 07/03/24 History buprenorphine 12 mg-naloxone 3 mg 1 film sublingual DAILY 06/28/24 07/03/24 History sublingual film buprenorphine 8 mg-naloxone 2 mg 1 film sublingual DAILY 06/28/24 07/03/24 History sublingual film calcium polycarbophil 625 mg 1,250 mg PO BID 06/28/24 07/03/24 History tablet (Fiber (calcium polycarbophil)) docusate sodium 100 mg capsule 100 mg PO DAILY 06/28/24 07/03/24 History duloxetine 30 mg capsule,delayed 30 mg PO DAILY 06/28/24 07/03/24 History release (Cymbalta) hydroxyzine HCl 50 mg tablet 50 mg PO DAILY PRN 06/28/24 07/03/24 History ibuprofen 200 mg tablet (Addaprin) 600 mg PO TID 06/28/24 07/03/24 History sennosides 8.6 mg tablet 8.6 mg PO DAILY 06/28/24 07/03/24 History (Black-Draught Lax-Senna) testosterone enanthate 100 mg/0.5 75 mg subcut QWEEK 06/28/24 07/03/24 History mL subcutaneous auto-injector L. acidophilus,casei,rhamnosus 50 1 cap PO DAILY #10 caps 06/29/24 07/03/24 Rx billion cell capsule,delayed release (Bio-K plus) clindamycin HCl 150 mg capsule 450 mg (3 x 150 mg) PO TID #63 caps 06/29/24 07/03/24 Rx Exam Narrative Exam Narrative: He does not appear septic or toxic but does appear uncomfortable His vital signs are documented elsewhere His chest wall motion is normal. He is not short of breath at rest. His lungs are clear Cardiac exam shows a regular rate and rhythm His abdomen is soft with no peritoneal signs There is a fluctuant mass on the left side of the penis consistent with an abscess He is awake and alert Results Labs 07/03/24 10:32 07/03/24 11:20 Labs: Laboratory Results - last 24 hr 07/03/24 07/03/24 10:32 11:20 WBC 11.73 H RBC 4.99 Hgb 15.6 Hct 47.2 MCV 95 MCH 31.3 MCHC 33.1 RDW 12.2 Plt Count 258 MPV 9.6 Immature Gran % 0.9 Neutrophils % 68.5 Lymphocytes % 17.1 Monocytes % 9.7 Eosinophils % 2.9 Basophils % 0.9 Nucleated RBC % 0.0 Absolute Neutrophils 8.04 H Absolute Lymphocytes 2.01 Absolute Monocytes 1.14 H Absolute Eosinophils 0.34 Absolute Basophils 0.11 VBG Lactate 1.1 Sodium 140 Potassium 3.8 Chloride 104 Carbon Dioxide 29.9 Anion Gap 6.1 BUN 20 H Creatinine 1.2 Est GFR (CKD-EPI 2020) 79.38 Glucose 80 Calcium 9.4 Last Vital Signs Temp 36.8 C 07/03/24 09:32 Pulse 88 07/03/24 09:32 Resp 20 07/03/24 11:25 BP 134/86 07/03/24 09:32 Pulse Ox 95 07/03/24 09:32 Time Spent Time spent with Patient: <40 minutes Time was spent: preparing to see the patient(eg.review tests), obtaining and/or reviewing separately otained hiistory and counseling the patient
[2024-07-03] MEDS: PIPERACILLIN/TAZO 3.375 GM in Normal Saline 50 ML IVPB ×2 (12:16→18:44)
[2024-07-03] MEDS: VANCOMYCIN/WATER (PEG) 2 GM/400 ML BAG IV (12:20)
[2024-07-03] MEDS: Lidocaine 1% Pres-Free 30 ML VIAL (12:24)
[2024-07-03] MEDS: Lactated Ringers 1,000 ML 30 ML IV (12:35)
--- NOTE | 2024-07-03 12:36 | W.PM.OP ---
Operative Note Operative Note PRE-OP DIAGNOSIS: Penile abcess POST-OP DIAGNOSIS: same PROCEDURE: incisional drainage of penile abcess SURGEON: Dillon Vazquez ANESTHESIA TYPE: Local By Surgeon and General:No Airway Refer to Anesthesia Record ESTIMATED BLOOD LOSS: 5 PATHOLOGY: other (wound cultures) COMPLICATIONS: None Patient was transported to: PACU Patient's condition: stable Indications: This is a 39-year-old gentleman who was recently hospitalized with penile cellulitis. We found no drainable fluid associated with his wound so he was treated with antibiotics alone. Clinically, he began to improve. His blood cultures from his initial presentation showed no bacterial growth. He returned to the emergency department today with a fluctuant mass along the penis with purulent drainage. On clinical exam, he clearly has an abscess present. He presents for an incisional drainage of the abscess Findings: Purulent material extending toward the base of the scrotum. The urethra was not involved. Procedure Description: The patient was brought to the operating room on 07/03/2024. After successful induction of general anesthesia, he was placed in the supine position. His genitalia was prepped and draped. An incision was made overlying the fluctuant mass and purulent material was obtained. Cultures of the purulent material were taken. The patient was then started on his IV antibiotics. The wound was then probed and we found tracking down toward the base of the penis. The urethra was palpable and was not involved in the abscess formation. The wound was then irrigated with a Betadine solution followed by saline. An iodoform packing was placed into the wound followed by a Kerlix wrap. The patient tolerated this procedure well with no complications. Date of Procedure: 07/03/24
--- NOTE | 2024-07-03 13:23 | W.ANESPOSTOP ---
Postoperative Evaluation Date, Time and Location Date Performed: 07/03/24 Time Performed: 13:24 Patient Location: PACU Vital Signs Most Recent Imported Vital Signs: Most Recent Vital Signs Temp Pulse Resp BP Pulse Ox 36.6 C 79 14 137/101 H 96 07/03/24 13:06 07/03/24 13:06 07/03/24 13:06 07/03/24 13:06 07/03/24 13:06 Pain Score Most Recent Pain Score: Most Recent Pain Score Pain Level 0 07/03/24 13:06 Assessment Mental Status: Awake (Alert & Oriented to Patient Baseline) Airway and Respiratory Function: Patent airway with normal (patient baseline) respiratory exam Cardiovascular Function: Hemodynamically Stable Hydration Status: Adequately Hydrated Nausea & Vomiting: No Nausea or Vomiting Pain: Pt. Denies Any Pain Peripheral Nerve Block: Patient did not receive a nerve block
[2024-07-03] MEDS: Clindamycin 150 MG CAP 450 MG PO ×2 (15:19→19:54)
[2024-07-03] MEDS: Acetaminophen 325 MG TAB 650 MG PO (16:53)
--- NOTE | 2024-07-03 17:37 | W.PC.ACHO ---
Registration Status: Primary Language: Preferred Language: ED Information & Data Chief Complaint Male Reproductive Problem 07/03/24 11:29 Chief Complaint Male Reproductive Problem 07/03/24 09:32 Triage Note on abx for wound on penis- 07/03/24 09:32 seen here recently. [facility] who was concerned about the color and the amount of drainage Most Recent Vital Signs Temperature 36.7 C 07/03/24 15:14 Temperature Source Temporal Artery Scan 07/03/24 15:14 Pulse 65 07/03/24 15:14 Pulse Rhythm Regular 07/03/24 13:42 Pulse 80 07/03/24 13:06 Respiratory Rate 18 07/03/24 15:14 Respiratory Effort Normal 07/03/24 13:42 Respiratory Depth Normal 07/03/24 13:42 Respiratory Pattern Normal 07/03/24 13:42 Blood Pressure 127/92 H 07/03/24 15:14 Blood Pressure Mean 103 07/03/24 15:14 Blood Pressure Position Sitting 07/03/24 09:32 Pulse Oximetry 97 07/03/24 15:14 Respiratory End-tidal CO2 36 07/03/24 13:06 Oxygen Delivery Method Room Air 07/03/24 15:14 Oxygen Flow Rate 0 07/03/24 15:14 Pain Level 6 07/03/24 14:02 Comment RN notified 07/03/24 15:14 Allergies No Known Allergies Allergy (Verified 07/03/24 09:33) Precautions Isolation Standard precaution 07/03/24 11:29 Active Medications Generic Name Dose Route Start Last Admin Trade Name Freq PRN Reason Stop Dose Admin Acetaminophen 650 mg 07/03/24 12:27 07/03/24 16:53 Acetaminophen 325 Mg Tab PO 650 mg Q4H PRN PRN Administration Clindamycin HCl 450 mg 07/03/24 14:00 07/03/24 15:19 Clindamycin 150 Mg Cap PO 450 mg TID REBECCA Administration Ringer's Solution 1,000 mls @ 30 mls/hr 07/03/24 12:45 07/03/24 12:35 IV 30 mls/hr INFUSION REBECCA Administration IV IV Catheter Type [Right Saline Lock Forearm] IV Catheter Gauge [Right 18 Forearm] Diet Orders Category Date Time Status Regular/Normal [DIET] Nutrition 07/03/24 Dinner Active npo [Nothing Per Oral] [DIET] Nutrition 07/03/24 Lunch Active Diagnostics 07/03/24 07/03/24 07/03/24 Range/Units 16:44 11:20 10:32 WBC 11.73 H (4.4-10.8) 10^3/uL RBC 4.99 (4.36-5.78) 10^6/uL Hgb 15.6 (13.5-17.5) g/dL Hct 47.2 (40.0-50.0) % MCV 95 (80-95) fL MCH 31.3 (27.0-33.0) pg MCHC 33.1 (32.0-36.0) % RDW 12.2 (11.8-14.1) % Plt Count 258 (130-400) 10^3/uL MPV 9.6 (8.0-11.0) fL Immature Gran % 0.9 % Neutrophils % 68.5 % Lymphocytes % 17.1 % Monocytes % 9.7 % Eosinophils % 2.9 % Basophils % 0.9 % Nucleated RBC % 0.0 (0.0-0.3) % Absolute Neutrophils 8.04 H (1.2-6.7) 10^3/uL Absolute Lymphocytes 2.01 (1.2-3.4) 10^3/uL Absolute Monocytes 1.14 H (0.1-0.8) 10^3/uL Absolute Eosinophils 0.34 (0.0-0.7) 10^3/uL Absolute Basophils 0.11 (0.0-0.2) 10^3/uL VBG Lactate 1.1 (<or=2.0) mmol/L Sodium 140 (136-145) mmol/L Potassium 3.8 (3.5-5.1) mmol/L Chloride 104 (98-107) mmol/L Carbon Dioxide 29.9 (21.0-32.0) mmol/L Anion Gap 6.1 (3-11) mmol/L BUN 20 H (7-18) mg/dL Creatinine 1.2 (0.70-1.30) mg/dL Est GFR (CKD-EPI 2020) 79.38 (mL/min/1.73m2) Glucose 80 (74-106) mg/dL Calcium 9.4 (8.5-10.1) mg/dL Urine Color Pending Urine Clarity Pending Urine pH Pending Ur Specific [place] Pending Urine Protein Pending Urine Ketones Pending Urine Blood Pending Urine Nitrite Pending Urine Bilirubin Pending Urine Urobilinogen Pending Ur Leukocyte Esterase Pending Urine Glucose Pending 07/03/24 15:07 Blood Culture - Pending Blood 07/03/24 14:35 Blood Culture - Pending Blood 07/03/24 12:17 Surgical Culture - Pending Penile Gram Stain - Final 07/03/24 12:17 Anaerobic Culture - Pending Groin - Left Intake and Output - 24 Hour Total 07/03/24 09:17 thru 07/03/24 15:10 Intake Total 450 Output Total 475 Balance -25 Weight 100.244 kg Intake: IV 450 Output: Urine 475 Other: Urine Color Yellow Urine Appearance Cloudy Urine Odor Normal Emesis Description None Falls Risk Assessment History of Falls No History 07/03/24 13:42 Contributing Factors Impairments 07/03/24 13:42 Ambulatory Aids Independent 07/03/24 13:42 Tubes/Lines W/no contributing factors 07/03/24 13:42 Gait Evaluation W/no contributing factors 07/03/24 13:42 Cognition No cognitive impairment 07/03/24 13:42 Fall Total Score 23 07/03/24 13:42 Level of Risk Standard/Low Risk 07/03/24 13:42 Problems Abscess of shaft of penis (Acute) v v v v v v v v v Sending and/or Receiving Nurses: Please use comment section below to note any information pertinent to the patient hand-off not included above. Information / Comments: Pt reported pain before transport. Stated it was burning Report received from: Handoff from Angelique Damon [employer].
[2024-07-03 18:14] LABS: Bilirubin Negative (Negative); Blood Negative (Negative); Clarity Clear (Clear); Glucose Negative (Negative); Ketones Negative (Negative); Leukocyte Esterase Negative (Negative); Nitrite Negative (Negative); Urobilinogen 0.2 mg/dL (Up to 0.2)
[2024-07-03] MEDS: Ketorolac 15 MG/ML VIAL IVP ×2 (18:41→23:57)
[2024-07-03] MEDS: Normal Saline 1,000 ML 100 ML IV (21:20)
[2024-07-04] MEDS: Acetaminophen 325 MG TAB 650 MG PO ×4 (00:02→20:15)
[2024-07-04] MEDS: PIPERACILLIN/TAZO 3.375 GM in Normal Saline 50 ML IVPB ×4 (00:02→18:33)
[2024-07-04 07:23] VITALS: BP 119/86; PULSE 53; RESP 12; TEMP 36.3; O2SAT 94
--- NOTE | 2024-07-04 07:46 | W.PM.PROGNOT ---
Date of Service Date of service: 07/04/24 Time of Service: 07:46 Assessment and Plan Assessment and plan (1) Abscess of shaft of penis: Status: Acute Assessment and plan: There is no evidence of any collection of fluid in the wound. We will continue with his antibiotics until his final cultures are available. I would expect we will discharge him back to the facility with oral antibiotics and local wound care tomorrow. Subjective Subjective Interval history since last seen: He remained afebrile overnight. He had quite a bit of discomfort especially when he developed an erection. He is having no difficulty voiding. Exam Narrative Exam Narrative: He does not appear septic or toxic His vital signs are documented elsewhere His dressing was removed and the wound was unpacked and inspected. There is no evidence of fluid collection within the wound, but there is surrounding erythema and edema. I placed a nonadherent iodoform gauze on the wound and we wrapped the area. The Gram stain taken intraoperatively to shows a few gram-positive cocci but all cultures are still pending Objective Last Vital Signs Temp 36.3 C L 07/04/24 07:23 Pulse 53 L 07/04/24 07:23 Resp 12 07/04/24 07:23 BP 119/86 07/04/24 07:23 Pulse Ox 94 07/04/24 07:23 Laboratory Results - last 24 hr 07/03/24 07/03/24 07/03/24 10:32 11:20 17:28 WBC 11.73 H RBC 4.99 Hgb 15.6 Hct 47.2 MCV 95 MCH 31.3 MCHC 33.1 RDW 12.2 Plt Count 258 MPV 9.6 Immature Gran % 0.9 Neutrophils % 68.5 Lymphocytes % 17.1 Monocytes % 9.7 Eosinophils % 2.9 Basophils % 0.9 Nucleated RBC % 0.0 Absolute Neutrophils 8.04 H Absolute Lymphocytes 2.01 Absolute Monocytes 1.14 H Absolute Eosinophils 0.34 Absolute Basophils 0.11 VBG Lactate 1.1 Sodium 140 Potassium 3.8 Chloride 104 Carbon Dioxide 29.9 Anion Gap 6.1 BUN 20 H Creatinine 1.2 Est GFR (CKD-EPI 2020) 79.38 Glucose 80 Calcium 9.4 Urine Color Yellow Urine Clarity Clear Urine pH 7.0 Ur Specific [place] 1.020 Urine Protein Negative Urine Ketones Negative Urine Blood Negative Urine Nitrite Negative Urine Bilirubin Negative Urine Urobilinogen 0.2 Ur Leukocyte Esterase Negative Urine Glucose Negative Time Spent with Patient Time Spent with Patient: <25 minutes Time was spent: preparing to see the patient(eg.review tests), obtaining and/or reviewing separately otained hiistory, referring, communicating with other health manager respiratory care and counseling the patient
[2024-07-04] MEDS: Ketorolac 15 MG/ML VIAL IVP ×3 (07:50→20:15)
[2024-07-04] MEDS: Lactobacillus Acidophilus CAP 1 CAP PO (07:51)
[2024-07-04] MEDS: Buprenorphine/Naloxone 12 mg/3 mg FILM 1 EACH SL (07:51)
[2024-07-04] MEDS: Buprenorphine/Naloxone 8 mg/2 mg FILM 1 EACH SL (07:51)
[2024-07-04] MEDS: DULoxetine 30 MG CAP PO (07:52)
[2024-07-04] MEDS: Clindamycin 150 MG CAP 450 MG PO ×3 (07:52→19:59)
--- NOTE | 2024-07-04 09:11 | INITIAL_ITS ---
Date of service: 07/04/24 Time of Service: 09:11 Care Management Initial Assmt Initial Assessment Reason for Hospitalization: Penile Abcess Functional Status/Living Situation Patient Presentation: Radha was lying in bed and had a CO in the room, at the time CM arrived. Radha was discharged on 06/29/24, after being treated for cellulitis of shaft of penis. Radha presented for evaluation of a penile infection now complicated by abscess. He states that he is tired, and not feeling well. Per report, Radha is anticipated to discharge tomorrow on oral antibiotics, he is unsure if he feels ready for d/c at this time. Radha states that he came back to the ED after seeing [facility] provider, that day; He had hoped to see a provider sooner, and states that the lack of healthcare services received from that facility, is the reason he is back again. CM will continue to follow. Town of Residence: [facility] Resides with: Other Significant Other/Family: Local (Son family but he asks that they do not visit him while he is incarcerated.) Natural Supports: Friends, some family, supports in the facility Employment Status: Other Instrumental Activities of Daily Living (ADLs): Independent Medications Medication Management: No Issues/Barriers identified Physical Functioning/Mobility Assistive Device: n/a Advance Directives Advance Directives: Do you have an Advance Directive: N 07/03/24 09:39 AD On File at [facility]: N 06/28/24 01:57 Date Asked 07/03/24 07/03/24 10:25 AD Date Reviewed COLST On File at [facility] COLST Date Scanned Code Status Resuscitation Status Full Code Portal Pt does not currently have a portal and education provided: Yes Insurance Coverage/Financial Issues Insurance: [facility] Care Team Visit Care Team Role Provider Type Paige Wilson Primary Care Provider NURSE PRACTITIONER Cezar Fonseca MD Emergency Provider [facility] STAFF PHYSICIAN Dillon Vazquez MD Admit Provider [facility] STAFF PHYSICIAN Attending Provider Discharge Potential Discharge Needs: PCP F/U Appt and Surgical F/U Appt Anticipated Barriers to Discharge: Medical Status Patient/Family Education Needs: Review discharge instructions, discuss Ask Me Three Transportation: Facility Transport ([facility]) Plan: Anticipate Radha will be discharged back to [facility], once medically ready. He will follow up with his facility providers, surgical services and discharge plan of care. He will be transported via facility vehicle by DOC. Social Determinants of Health Screening Will the Patient Participate in the Screening?: Unable to obtain [facility] All Active Problems (Updated 07/03/24 @ 11:17 by Cezar Fonseca MD) Abscess of shaft of penis (Acute) Liver function abnormality (Acute) Hypomagnesemia (Acute) Opiate dependence (Acute) Cellulitis of shaft of penis (Acute) Social History Smoking/Tobacco Use Status: Former Tobacco Use Smoking risk assessment performed?: Yes Alcohol Intake: former Housing: other Do you feel safe at home: Yes Do you feel safe in your relationship?: Yes Readmission Within the Past 30 Days Yes or No: Yes Date of First Admission Date of 1st Admission: 06/28/24 Date of this Admission Date of Admission: 07/03/24 This admission was: Through ED Office Visit Since 1st Admission Have you seen your PCP in the office since discharge?: Yes Date of PCP Appointment: providers at [facility] Had an appointment Been Scheduled?: Yes Date of Scheduled Appointment: 07/03/24 Describe barriers for scheduling or getting an appointment: States that his access to health care is minimized due to being incarcerated and the healthcare employees are useless. Speicalist Appointments Have you seen any other specialist since your 1st Admission?: No I. Interview patient and/or Family Difficulty reaching your doctor or getting an office appt?: No Have you had trouble purchasing/ or taking medication?: No Describe barriers fpr purchasing or taking medication: [facility] How do you take your medications and set up your pills?: The facility handles all medications Have you had trouble with getting meals at home?: No Describe your typical meals since you have been home: Typical diet Did you feel ready for discharge when you left the last time: No Why did you not feel ready for discharge?: Patient states that he didn't feel ready for d/c due to still feeling sick and then it was worsened cause by lack of proper care at [facility]. Were services received that you thought were set up on disch: No What services were received?: Patient states he did not see the provider as soon as he thought he would have and his medications were delivered 3x daily and he thought that they should have been 6x daily. What were the barriers for not receiving services?: Lack of adequate care Did you call your physician beore you came to the ED?: Yes Did your physician tell you to come in?: Yes How do you think you became sick enough to come back?: Patient states, Lack of care at [facility] ED visits How many ED visits in the past 12 months: 3 Assessment for Readmission Summary of readmission circumstances, based upon interviews: Radha was here and treated, once he was discharged, he felt that he shouldve seen a provider sooner than he was able too.
--- NOTE | 2024-07-04 11:21 | PHA.REVIEW2 ---
Pharmacy Admission Review Admission Clinical Review Admission Pharmacy Review: Abscess of shaft of penis (Acute) No Known Allergies Allergy (Verified 07/03/24 09:33) Resuscitation Status Full Code Height 6 ft Weight 100.244 kg Pharmacy Admission Review Renal Dosing Renal Dosing: BUN 20 mg/dL (7-18) H 07/03/24 11:20 Creatinine 1.2 mg/dL (0.70-1.30) 07/03/24 11:20 Medications needing adjustments: Reviewed (CrCl 102.3 mL/min) List of meds needing interventions: Current medications are okay Anticoagulation Anticoagulation: Hgb 15.6 g/dL (13.5-17.5) 07/03/24 10:32 Hct 47.2 % (40.0-50.0) 07/03/24 10:32 Plt Count 258 10^3/uL (130-400) 07/03/24 10:32 Creatinine 1.2 mg/dL (0.70-1.30) 07/03/24 11:20 DVT Prophylaxis: Reviewed (None ordered - postop #1, likely discharge tomorrow per progress note) Opiate Usage Evaluate Pain Scale/Pains Meds: Reviewed (takes Suboxone 20mg daily - dose confirmed during last admission (06/28/24)) Scheduled Bowel Reg ordered if on Opiates?: Yes (docusate and Senna daily) Relevant Labs Relevant Labs: Sodium 140 mmol/L (136-145) 07/03/24 11:20 Potassium 3.8 mmol/L (3.5-5.1) 07/03/24 11:20 Chloride 104 mmol/L (98-107) 07/03/24 11:20 Electrolytes, C-Reactive P, ESR: Reviewed (No new labs for today) Cardiac Review BP, HR, EF%: Reviewed (BP WNL, HR 53) QTc Review QTc: Reviewed (No EKG on file) IV to PO Switch IV Medications: Reviewed (ketorolac and Zosyn) Home Meds Home Med List reviewed: Reviewed Relevent Home Meds Not ordered & why?: calcium, ibuprofen (has order for PRN ketorolac) and testosterone (weekly injection) Current Meds Current Medication Order Review: Intervened Comments: Added IV access order Pharmacy Antibiotic Review Relevant Labs: WBC 11.73 10^3/uL (4.4-10.8) H 07/03/24 10:32 Temperature 36.3 C Microbiology 07/03/24 12:17 Surgical Culture - Preliminary Penile Staph aureus, MRSA Gram Stain - Final Pharmacy Antibiotic Activity: C/S review and Reviewed, no change Comments: Patient is on Zosyn and clindamycin PO, day 1 (was discharged last week on PO clindamycin), for penile abscess. Blood cultures pending.
[2024-07-04] MEDS: Normal Saline Flush 10 ML SYR IVP ×3 (12:46→20:15)
[2024-07-04 20:03] VITALS: BP 124/90; PULSE 60; RESP 15; TEMP 36.4; O2SAT 98
[2024-07-05] MEDS: PIPERACILLIN/TAZO 3.375 GM in Normal Saline 50 ML IVPB ×3 (00:22→11:12)
[2024-07-05] MEDS: Normal Saline 500 ML 100 ML IV (00:22)
[2024-07-05] MEDS: Normal Saline Flush 10 ML SYR IVP ×4 (00:23→14:01)
[2024-07-05] MEDS: Ketorolac 15 MG/ML VIAL IVP ×2 (06:13→14:01)
[2024-07-05 07:26] VITALS: BP 120/69; PULSE 55; RESP 16; TEMP 36.3; O2SAT 95
[2024-07-05] MEDS: Buprenorphine/Naloxone 12 mg/3 mg FILM 1 EACH SL (08:37)
[2024-07-05] MEDS: Acetaminophen 325 MG TAB 650 MG PO ×2 (08:38→13:56)
[2024-07-05] MEDS: Clindamycin 150 MG CAP 450 MG PO ×2 (08:38→13:56)
[2024-07-05] MEDS: Buprenorphine/Naloxone 8 mg/2 mg FILM 1 EACH SL (08:38)
[2024-07-05] MEDS: DULoxetine 30 MG CAP PO (08:38)
[2024-07-05] MEDS: Lactobacillus Acidophilus CAP 1 CAP PO (08:38)
--- NOTE | 2024-07-05 14:43 | W.PM.DS.N ---
Date of service: 07/05/24 Time of Service: 14:43 DS: Diagnosis Discharge Diagnosis (1) Abscess of shaft of penis: Status: Acute Discharge Plan Disposition Patient Disposition: [facility] Condition: Improving Discharge Details Reason For Visit: Penile Abcess Admit Date/Time: 07/03/24 12:28 Admit Provider: iDllon Vazquez Attending Provider: Dillon Vazquez Primary Care Provider: Paige Wilson Hospital Course Hospital Course: The patient was admitted through the emergency department and taken immediately to the operating room where he underwent an incisional drainage of his penile abscess. Cultures were obtained and ultimately grew MRSA. He was maintained on IV antibiotics until the cultures were available. His blood cultures were negative. The swelling and discomfort improved dramatically with his drainage procedure and with localized care. He will be discharged back to the correctional facility for continued oral antibiotics and local wound care. Home Meds and New Rx's Prescriptions: No Action buprenorphine-naloxone 8-2 mg film 1 film sublingual DAILY Rx Instructions: with 01/09 film, total dose = 20 mg-5 mg daily (dose confirmed w/long-term) ibuprofen [Addaprin] 200 mg tablet 600 mg PO TID duloxetine [Cymbalta] 30 mg capsule,delayed release(DR/EC) 30 mg PO DAILY acetaminophen 325 mg capsule 650 mg PO BID PRN calcium polycarbophil [Fiber (calcium polycarbophil)] 625 mg tablet 1,250 mg PO BID docusate sodium 100 mg capsule 100 mg PO DAILY sennosides [Black-Draught Lax-Senna] 8.6 mg tablet 8.6 mg PO DAILY hydroxyzine HCl 50 mg tablet 50 mg PO DAILY PRN testosterone enanthate 100 mg/0.5 mL auto-injector 75 mg subcut QWEEK buprenorphine-naloxone 12-3 mg film 1 film sublingual DAILY Rx Instructions: with 09/08 film, total dose = 20 mg-5 mg daily (dose confirmed w/long-term) clindamycin HCl 150 mg Capsule 450 mg PO TID Qty: 63 0RF Bio-K plus 50 billion cell capsule,delayed release(DR/EC) 1 cap PO DAILY Qty: 10 0RF Rx Instructions: Give 3 hours apart from antibiotics Discharge Instructions Additional Instructions: Apply iodoform nonstick dressing to the open wound followed by a small Kerlix wrap. Change the Kerlix wrap on a as needed basis. Change the iodoform nonstick dressing once a day. Once the skin closes over completely, no dressing will be necessary. Continue with oral clindamycin 150 mg p.o. 3 times daily for 1 additional week Follow-up appointment to see me in 1 to 2 weeks for a wound check Since his wound did grow MRSA, I would recommend keeping him in a medical or more isolated unit until the skin has closed completely Activity:: Activity as Tolerated Equipment/Supplies:: Dressing supplies Diet:: As Tolerated Discharge Orders Discharge Orders: Discharge Order (Routine); Ordered 07/05/24 Ordered By: Dillon Vazquez DS: Summary Time Spent with Patient providing and/or coordinating discharge services: Less than 30 minutes Status at Discharge Functional status at discharge: independent ambulation Overall status at discharge: patient is progressing back to baseline Mental Status: mental status grossly normal Speech and Movement: speech and movement normal Mood: congruent mood Affect: normal affect Quality:SDOH Health Related Social Needs: No Data to Display Exam Narrative Exam Narrative: On the afternoon of discharge, he does not appear septic or toxic His vital signs are documented elsewhere His chest wall motion is normal. His abdomen is soft with no guarding or rebound tenderness Penile shaft is no longer edematous and there is no fluctuant material. There is an open area of skin that is granulating He is awake and alert Psych Mental Status: mental status grossly normal Speech and Movement: speech and movement normal Mood: congruent mood Affect: normal affect DS: Data Vitals/I&O Vitals and I&O: Vital Signs Temperature 36.3 C L 07/05/24 07:26 Temperature Source Temporal Artery Scan 07/05/24 07:26 Pulse 55 L 07/05/24 07:26 Pulse Rhythm Regular 07/03/24 13:42 Pulse 80 07/03/24 13:06 Respiratory Rate 16 07/05/24 07:26 Respiratory Effort Normal 07/03/24 13:42 Respiratory Depth Normal 07/03/24 13:42 Respiratory Pattern Normal 07/03/24 13:42 Blood Pressure 120/69 07/05/24 07:26 Blood Pressure Mean 86 07/05/24 07:26 Blood Pressure Position Sitting 07/03/24 09:32 Pulse Oximetry 95 07/05/24 07:26 Respiratory End-tidal CO2 36 07/03/24 13:06 Oxygen Delivery Method Room Air 07/05/24 07:26 Oxygen Flow Rate 0 07/05/24 07:26 Pain Level 4 07/05/24 14:01 Comment RN notified 07/05/24 07:26 Intake & Output 07/04/24 07/05/24 07/05/24 23:59 11:59 23:59 Intake Total 120 / 1220 1090 / 1360 270 / 1360 Output Total 1025 / 3200 935 / 935 Balance -905 / -1980 155 / 425 270 / 425 Intake: IV 120 / 1220 640 / 690 50 / 690 Oral 450 / 670 220 / 670 Output: Urine 1025 / 3200 935 / 935 Other: Urine Color Yellow Yellow Urine Appearance Clear Clear Urine Odor None Normal Stool Size Moderate Stool Characteristics Liquid Data Completed and Pending Labs on day of discharge: Preliminary micro results at discharge 07/03/24 12:17 Groin - Left Anaerobic Culture - Preliminary 07/03/24 12:17 Penile Surgical Culture - Preliminary Staphylococcus aureus 07/03/24 15:07 Blood Blood Culture - Preliminary NO GROWTH 24 HOURS 07/03/24 14:35 Blood Blood Culture - Preliminary NO GROWTH 24 HOURS PFSH All Active Problems Abscess of shaft of penis (Acute) Liver function abnormality (Acute) Hypomagnesemia (Acute) Opiate dependence (Acute) Cellulitis of shaft of penis (Acute) Surgical History (Updated 07/05/24 @ 14:44 by Dillon Vazquez MD) History of incision and drainage Social History Smoking/Tobacco Use Status: Former Tobacco Use Smoking risk assessment performed?: Yes Alcohol Intake: former Housing: other Do you feel safe at home: Yes Do you feel safe in your relationship?: Yes Time Spent with Patient Time Spent with Patient: <45 minutes Time was spent: preparing to see the patient(eg.review tests), obtaining and/or reviewing separately otained hiistory, referring, communicating with other health career services officer and counseling the patient
--- NOTE | 2024-07-05 14:52 | PGE_ITS ---
Date of Service Date of service: 07/05/24 Time of Service: 14:53 Assessment and Plan Assessment and plan (1) Abscess of shaft of penis: Status: Acute Assessment and plan: His blood cultures show no bacterial growth but his wound grew MRSA. We will discharge him back to the correctional facility with oral antibiotics and local wound care until his wound closes Subjective Subjective Interval history since last seen: He is not having any fevers or chills. He has noticed a marked improvement in the edema Exam Narrative Exam Narrative: He appears comfortable His vital signs are documented elsewhere in the chart His penile wound shows no fluctuance He is awake and alert Objective Last Vital Signs Temp 36.3 C L 07/05/24 07:26 Pulse 55 L 07/05/24 07:26 Resp 16 07/05/24 07:26 BP 120/69 07/05/24 07:26 Pulse Ox 95 07/05/24 07:26 Time Spent with Patient Time Spent with Patient: <25 minutes Time was spent: preparing to see the patient(eg.review tests), obtaining and/or reviewing separately otained hiistory, referring, communicating with other health health care administrator and counseling the patient
--- NOTE | 2024-07-05 15:09 | CMDISCH_ITS ---
Date of service: 07/05/24 Time of Service: 15:09 LACE Index Scoring Tool Questions: Length of Stay (in days): 2 Was the patient admitted via the E.D.?: Yes E.D. Visits: 3 Answers: Total Score: 8 Risk of Readmission: Low Risk Care Management Discharge Plan Reason for Hospitalization: Penile Abcess Discharge Plan: Radha will be discharged back to [facility] today. He will follow up with his facility providers, surgical services and discharge plan of care. He will be transported via facility vehicle by DOC. Patient/Family Education Needs: Review of discharge instructions, activity, limitation, and plan of care. Discuss Ask Me Three. SDSC Health Related Social Needs: No Data to Display
== END 2024-07-05 15:40 ==
LOC: ER 11:32 → DSU 11:35 → MS 13:39
PROVIDERS: Admitting Provider Urology; Emergency Provider Emergency Medicine; PCP Nurse Practitioner Adult Health; Visit Provider Urology
PROC: (CPT 10060; principal; 2024-07-03 11:30)
DX: N48.21 Abscess of corpus cavernosum and penis (principal); N48.22 Cellulitis of corpus cavernosum and penis; E83.42 Hypomagnesemia; F11.20 Opioid dependence, uncomplicated; R94.5 Abnormal results of liver function studies; B95.62 Methicillin resistant Staphylococcus aureus infection as the cause of diseases classified elsewhere
CPT/HCPCS: 10060; 36415; 80048; 87040; 87077; 96361; 96365; 96366; 96367; 96375; 96376; 99285; 81003; 83605; 85025; 87070; 87075; 87186; 87205; G0378; J0131; J1885; J2003; J2250; J2270; J2543; J2704; J3372